=== PATIENT | female | born 1965 | race Caucasian/White ===

== ENCOUNTER 2025-03-03 22:56 | Inpatient (IN) | payer MEDICAID, SELFPAY ==
[2025-03-03 23:05] VITALS: BMI 28.1
[2025-03-03 23:06] VITALS: BP 121/75; PULSE 81; RESP 18; TEMP 38.4; O2SAT 100
[2025-03-03 23:12] VITALS: PULSE 61; RESP 20; O2SAT 95
--- NOTE | 2025-03-03 23:56 | XR_ITS ---
Examination: AP chest single view Technique one AP portable semiupright chest single view Date and time: March 04, 2025 0025 hours INDICATIONS: Shortness of breath chest pain today. FINDINGS: Significant pneumonia right base Normal heart size No pulmonary edema. Moderate osteopenia. IMPRESSION: Significant pneumonia right base
[2025-03-04] VITALS (62 sets, daily range): BP systolic 75–112; BP diastolic 48–69; PULSE 53–99; RESP 13–30; TEMP 35.5–39; O2SAT 88–98
--- NOTE | 2025-03-04 00:06 | PD.EDADULT ---
ED General RME/HPI General Chief complaint: Fever Stated complaint: FEVER Time Seen by Provider: 03/03/25 23:56 Arrival date/time: 03/03/25 22:56 RME / HPI RME / HPI narrative: 59-year-old female with past medical history of hypothyroidism comes into the ED with chief complaint of fever. Patient is a very poor historian and on evaluation was not able to provide much of the history. Patient stated that she has been feeling unwell for the past week since she was diagnosed with COVID. Patient was AO x 4, but was not providing accurate history about what symptoms brought her to the ED. On assessment patient was noted to have a temperature of 101 along with wheezing on auscultation. Denied chest pain,but did endorse abdominal pain and diarrhea. Otherwise no other complaints at this time. Admits smoking, denies any drugs or alcohol. Related Data Home Medications ?Medication ?Instructions ?Recorded ?Confirmed Levothyroxine * (SYNTHROID *) 250 mcg PO ACBR #0 tabs 06/11/14 escitalopram oxalate 10 mg tablet 10 mg PO QDAY #0 tabs 06/11/14 (Lexapro) naproxen 500 mg tablet (Naprosyn) 500 mg PO BIDWM #0 tabs 06/11/14 Allergies Allergy/AdvReac Type Severity Reaction Status Date / Time Penicillins Allergy Mild Hives Verified 03/03/25 23:16 Bee Stings Allergy Mild SWELL UP Uncoded 03/03/25 23:16 Review of Systems Review of Systems Systems Reviewed: All systems reviewed, normal except as documented Past Medical History Past Medical History Comments PMH COMMENT: PMH: Hypothyroidism Allergies: penicillin Social: Admits smoking, denies illicit drugs or drinking ED Exam Narrative Physical exam: Gen: A&O X 3, NAD HEENT: NCAT, EOMI, Pupils reactive MOISE, not icteric. External ears normal. No rhinorrhea. Moist mucous membranes. Neck: Supple, full range of motion, no observable masses, No meningeal sign. Lungs: No Respiratory distress,Wheezing MOISE. CV: RRR, no murmurs. Abdomen: Soft, nondistended, No rebound tenderness. MSK: No joint swelling, no redness, peripheral pulses presents, lumbar with no edema. Skin: No rashes, petechiae, lesions. Neuro: No focal neurological deficits appreciated, sensory and motor intact. Psych: flat affect Course Quality Measures none Orders Category Date Time Status Admit to Inpatient Status Routine Admission 03/04/25 03:23 Active Patient Condition Routine Admission 03/04/25 03:22 Ordered Gauger Chief Q4H START 00 Care 03/03/25 23:56 Active Continuous Pulse Oximetry NOW Care 03/03/25 23:56 Completed EKG (ED ONLY) *Do not use* NOW Care 03/03/25 23:56 Completed Schneider [Urinary Catheter] QS Care 03/04/25 03:30 Active Miscellaneous Nursing Order NOW Care 03/04/25 03:22 Active Notify provider NEEDED Care 03/04/25 03:22 Active Straight [In and Out Catheter] X1 Care 03/04/25 03:06 Active Strict Intake and Output Routine Care 03/04/25 03:30 Ordered Diet Regular Diet 03/04/25 Breakfast Active CXRP [XR chest 1V portable] Stat Exams 03/03/25 23:56 Taken EKG (ED Only) Stat Exams 03/03/25 23:56 Ordered US renal BI Routine Exams 03/04/25 03:29 Ordered ABG [Arterial Blood Gas] Stat Lab 03/04/25 02:57 Ordered Blood Culture (Lab) Stat Lab 03/04/25 00:50 Received CBC AM DRAW Lab 03/04/25 05:00 Ordered CBC AM DRAW Lab 03/05/25 05:00 Ordered CBC AM DRAW Lab 03/06/25 05:00 Ordered CBC [CBC] Stat Lab 03/03/25 00:25 Completed CMP [Comprehensive Metabolic Panel] Stat Lab 03/03/25 00:25 Completed Comprehensive Metabolic Panel AM DRAW Lab 03/04/25 05:00 Ordered Comprehensive Metabolic Panel AM DRAW Lab 03/05/25 05:00 Ordered Comprehensive Metabolic Panel AM DRAW Lab 03/06/25 05:00 Ordered Drug Screen,Urine Stat Lab 03/03/25 23:56 Ordered Lactic Acid [Lactate (Lactic Acid)] Stat Lab 03/03/25 00:25 Completed Lactic Acid [Lactate (Lactic Acid)] Stat Lab 03/04/25 02:56 Completed Lipid Panel AM DRAW Lab 03/04/25 05:00 Ordered Magnesium AM DRAW Lab 03/04/25 05:00 Ordered Magnesium AM DRAW Lab 03/05/25 05:00 Ordered Magnesium AM DRAW Lab 03/06/25 05:00 Ordered Magnesium Stat Lab 03/03/25 00:25 Completed Partial Thromboplastin Time AM DRAW Lab 03/05/25 05:00 Ordered Phosphorous AM DRAW Lab 03/05/25 05:00 Ordered Phosphorous AM DRAW Lab 03/06/25 05:00 Ordered Phosphorous AM DRAW Lab 03/07/25 05:00 Ordered Procalcitonin Stat Lab 03/03/25 00:25 Completed Prothrombin Time with INR AM DRAW Lab 03/05/25 05:00 Ordered Sputum Culture and Gram Stain Routine Lab 03/04/25 03:28 Ordered Troponin I Stat Lab 03/03/25 00:25 Completed Troponin I Stat Lab 03/04/25 02:56 Completed UA [Urinalysis] Stat Lab 03/03/25 23:56 Ordered 2 gm IV qday Med 03/04/25 03:34 Ordered cefTRIAXone [Rocephin] 2 gm SODIUM CHLORIDE 0.9% (Popper) [Ns 0.9% (P)] 50 ml IV QDAY 500 mg qday Med 03/06/25 09:00 Ordered Azithromycin Inj [Zithromax Inj] 500 mg Sodium Chloride 0.9% 250 ml [Ns] 250 ml IV QDAY Acetaminophen Tab [Tylenol Tab] Med 03/04/25 03:22 Active 650 mg PO Q6H PRN Acetaminophen Tab [Tylenol Tab] Med 03/04/25 00:16 Discontinued 650 mg PO X1 ONE Albuterol/Ipratr Rt Eli [Duoneb Rt Eli] Med 03/04/25 03:22 Active 3 ml INH Q2HR PRN Albuterol/Ipratr Rt Eli [Duoneb Rt Eli] Med 03/04/25 00:03 Discontinued 3 ml INH X1 ONE Albuterol/Ipratr Rt Eli [Duoneb Rt Eli] Med 03/04/25 03:25 Discontinued 3 ml INH X1 ONE Azithromycin Inj [Zithromax Inj] 500 mg Med 03/04/25 01:13 Active Sodium Chloride 0.9% 250 ml [Ns] 250 ml IV QDAY Clindamycin/Ns 600 mg Ivpb [Cleocin/Ns Ivpb] Med 03/04/25 02:08 Discontinued 600 mg in 50 ml IV X1 Docusate Sod [Colace] Med 03/04/25 03:22 Active 100 mg PO QDAY PRN Heparin Inj Med 03/04/25 09:00 Ordered 5,000 unit SC Q12HR Magnesium Sulfate 4 GM Ivpb [Magnesium Sulfate Ivpb] Med 03/04/25 01:36 Active 4 gm in 50 ml IV X1 MethylPREDNISolone.* [SoluMEDROL Inj] Med 03/04/25 00:03 Discontinued 125 mg IVP X1 ONE Ondansetron Inj [Zofran Inj] Med 03/04/25 03:22 Active 4 mg IVP Q6H PRN Ringers Lactated 1000 ml [Lactated Ringers] 1,000 ml Med 03/04/25 03:30 Active IV 75 mls/hr Senna [Senokot] Med 03/04/25 03:22 Active 1 tab PO QDAY PRN Sodium Chloride 0.9% 1000 ml [Ns] 1,000 ml Med 03/04/25 01:48 Discontinued IV 999 mls/hr Sodium Chloride 0.9% 1000 ml [Ns] 1,000 ml Med 03/04/25 02:51 Active IV 999 mls/hr Sodium Chloride Rt Eli 10% [NS Rt Eli 10%] Med 03/04/25 03:27 Discontinued 5 ml INH X1 ONE predniSONE Med 03/04/25 09:00 Ordered 40 mg PO QDAY Code Status Routine Oth 03/04/25 03:22 Ordered Oxygen Delivery NOW RT 03/04/25 00:05 Active Sputum Induction PRN RT 03/04/25 03:30 Ordered Vital Signs Vital signs: Vital Signs Temperature 101.1 F H 03/03/25 23:06 Pulse Rate 81 03/03/25 23:06 Respiratory Rate 18 03/03/25 23:06 Blood Pressure 121/75 03/03/25 23:06 Pulse Oximetry (%) 100 03/03/25 23:06 Oxygen Delivery Method Room Air 03/03/25 23:06 Discharge Plan Prescriptions/Referrals Prescriptions/Med Rec: No Action naproxen [Naprosyn] 500 MG tablet 500 mg PO BIDWM Qty: 0 Patient Comments: PRN PAIN escitalopram oxalate [Lexapro] 10 MG tablet 10 mg PO QDAY Qty: 0 Levothyroxine * (SYNTHROID *) 125 MCG tablet 250 mcg PO ACBR Qty: 0 Referrals: No Primary/Family,Physician [Primary Care Provider] - In 1 week Problem List Clinical Impression: Acute hypoxic respiratory failure, Acute exacerbation of chronic obstructive pulmonary disease Patient/Caregiver Discharge Instructions Print Language: Hebrew MDM Narrative MDM hospital course: Patient was seen and assessed by myself upon arrival. Diagnostic labs and imaging was ordered. DuoNebs, methylprednisolone 125 x 1 and acetaminophen 650 x 1 was ordered. 1:13: Patient's lab were reviewed and shows some WBC elevation at 12.2, lactic acid was not elevated, Pro-Hao was elevated at 9.90, patient does have a creatinine of 2.6, and magnesium was low at 1.4. Ordered magnesium 4 g. EKG did not show any ST changes, but troponins were slightly elevated to 0.053. Chest x-ray evaluated and does show some consolidation on the right lower lung therefore gave azithromycin IV x 1 and will also add clindamycin. 2:07: Patient reevaluated. Patient still AO x 3 and in no acute distress. Patient's blood pressure did drop to the 80s over 60s, but MAP was still above 65. At this time gave 1 L of IV fluids. Patient's fever subsided. Patient still requiring around 5 L of O2. 2:33: Spoke with IM team for admission. Will assess the patient for admission. 3:08: Patient reevaluated. BP in the 90s over 60s after 1L IV fluids. Ordered additional 1L and repeat lactic acid and troponin. Case disclosed with Attending Dr. Raj Miranda PGY2 Disclaimer: Even though this this note was dictated by speech recognition and even though it was carefully revised there may still be minor errors in manager subway due to voice recognition software. Medication Administration(s) Medication Administration History Acetaminophen (Acetaminophen 325 Mg Tablet) 650 mg PO Q6H PRN PRN Reason: Fever >100.4 or pain Stop: 04/03/25 03:21 Albuterol/Ipratropium (Albuterol/Ipratropium (Duoneb) Rt Eli 3 Ml Nebu) 3 ml INH Q2HR PRN PRN Reason: SHORTNESS OF BREATH OR WHEEZE Stop: 04/03/25 03:21 Docusate Sodium (Docusate Sod 100 Mg Capsule) 100 mg PO QDAY PRN; Protocol PRN Reason: CONSTIPATION Stop: 04/03/25 03:21 Heparin Sodium (Porcine) (Heparin Sod Inj 5000 Unit/Ml Vial) 5,000 unit SC Q12HR AID Stop: 03/18/25 08:59 Azithromycin 500 mg/ Sodium (Chloride) 250 mls @ 250 mls/hr IV QDAY [facility] Stop: 03/11/25 01:12 Last Infusion: 03/04/25 02:40 Dose: Infused Documented By: Admin: 03/04/25 01:40 Dose: 250 mls/hr Documented By: CG Magnesium Sulfate (Magnesium Sulfate Ivpb) 4 gm in 50 mls @ 12.5 mls/hr IV X1 ONE Stop: 03/04/25 05:35 Last Admin: 03/04/25 02:20 Dose: 12.5 mls/hr Documented By: CG Sodium Chloride (Ns) 1,000 mls @ 999 mls/hr IV .Q1H1M ONE Stop: 03/04/25 03:51 Last Admin: 03/04/25 03:02 Dose: 999 mls/hr Documented By: PAULIE Lactated Ringer's (Lactated Ringers) 1,000 mls @ 75 mls/hr IV .[id number] [facility] Stop: 03/04/25 16:49 Ondansetron HCl (Ondansetron Inj 2 Mg/Ml Inj 2 Ml) 4 mg IVP Q6H PRN; Protocol PRN Reason: NAUSEA OR VOMITING Stop: 04/03/25 03:21 Sennosides (Senna Tablet) 1 tab PO QDAY PRN; Protocol PRN Reason: constipation Stop: 04/03/25 03:21 Discontinued Medications Acetaminophen (Acetaminophen 325 Mg Tablet) 650 mg PO X1 ONE Stop: 03/04/25 00:17 Last Admin: 03/04/25 00:38 Dose: 650 mg Documented By: PAULIE Albuterol/Ipratropium (Albuterol/Ipratropium (Duoneb) Rt Eli 3 Ml Nebu) 3 ml INH X1 ONE Stop: 03/04/25 00:04 Last Admin: 03/04/25 00:20 Dose: 3 ml Documented By: GUI Albuterol/Ipratropium (Albuterol/Ipratropium (Duoneb) Rt Eli 3 Ml Nebu) 3 ml INH X1 ONE Stop: 03/04/25 03:26 Sodium Chloride (Ns) 1,000 mls @ 999 mls/hr IV .Q1H1M ONE Stop: 03/04/25 02:48 Last Admin: 03/04/25 03:01 Dose: 999 mls/hr Documented By: Infusion: 03/04/25 02:54 Dose: Infused Documented By: Admin: 03/04/25 01:53 Dose: 999 mls/hr Documented By: PAULIE Clindamycin/Sodium Chloride (Cleocin/Ns Ivpb) 600 mg in 50 mls @ 100 mls/hr IV X1 ONE Stop: 03/04/25 02:37 Last Admin: 03/04/25 03:00 Dose: 100 mls/hr Documented By: PAULIE Methylprednisolone Sodium Succinate (Methylprednisolone Sod Succ 62.5 Mg/Ml 2ml Vial) 125 mg IVP X1 ONE Stop: 03/04/25 00:04 Last Admin: 03/04/25 00:33 Dose: 125 mg Documented By: PAULIE Sodium Chloride (Sodium Chloride Rt 10% 15 Ml Nebu) 5 ml INH X1 ONE Stop: 03/04/25 03:28
[2025-03-04] MEDS: ALBUTEROL/IPRATROPIUM (Duoneb) RT SOL 3 ML NEBU INH ×2 (00:20→04:12)
[2025-03-04] MEDS: MethylPREDNISolone SOD SUCC 62.5 MG/ML 2ML VIAL 125 MG IVP (00:33)
[2025-03-04 00:34] LABS: Lactate (Lactic Acid) 1.4 mMol/L (0.4-2.0)
[2025-03-04 00:38] LABS: Basophils # (Auto) 0.1 Thou/mm3 (0.0-0.2); Basophils % (Auto) 0 % (0-2.5); Eosinophils # (Auto) 0.0 Thou/mm3 (0.0-0.5); Eosinophils % (Auto) 0 % (0-10); Hematocrit 36.8 % (36.0-46.0); Hemoglobin 13.1 g/dL (12.0-16.0); Immature Granulocytes Auto 0.10 Thou/mm3 (0.00-0.00); Lymphocytes # (Auto) 0.9 Thou/mm3 (1.0-4.8); Lymphocytes % (Auto) 7 % (10-50); Mean Corpuscular HGB Conc 35.6 g/dl (31.0-37.0); Mean Corpuscular Hemoglobin 30.5 pg (25.0-35.0); Mean Corpuscular Volume 86 fL (80-100); Monocytes # (Auto) 0.8 Thou/mm3 (0.0-0.8); Monocytes % (Auto) 6 % (0-12); Neutrophils # (Auto) 10.4 Thou/mm3 (1.8-7.7); Neutrophils % (Auto) 86 % (37-80); Nucleated Red Blood Cell # 0.00 Thou/mm3 (0.00-0.00); Nucleated Red Blood Cell % 0 /100 WBC (0); Platelet Count 141 Thou/mm3 (140-440); RDW Standard Deviation 45.9 fL (36.4-46.3); Red Blood Count 4.29 Miln/mm3 (4.00-5.20); White Blood Count 12.2 Thou/mm3 (3.6-11.0)
[2025-03-04] MEDS: ACETAMINOPHEN 325 MG TABLET 650 MG PO (00:38)
[2025-03-04 01:11] LABS: Alanine Aminotransferase 149 U/L (10-49); Albumin, Serum 4.1 gm/dL (3.4-4.8); Albumin/Globulin Ratio 1.6 (1.2-2.2); Alkaline Phosphatase 99 U/L (46-116); Anion Gap 13 (7-16); Aspartate Amino Transferase 458 U/L (0-34); BUN/Creatinine Ratio 18 Ratio (12-20); Bilirubin,Total 0.9 mg/dL (0.3-1.2); Blood Urea Nitrogen 46 mg/dL (9-23); Calcium 8.5 mg/dL (8.3-10.6); Calcium (Corrected) 8.5 mg/dL (8.5-10.1); Carbon Dioxide 21.6 mMol/L (20.0-31.0); Chloride 95 mMol/L (98-107); Creatinine (Component) 2.6 mg/dL (0.6-1.3); Estimated Creatinine Clearance 25.3 mL/min (>60); Globulin 2.5 gm/dL (2.3-3.5); Glucose 124 mg/dL (74-106); Magnesium 1.4 mg/dL (1.6-2.6); Osmolality,Calculated 273 (275-295); Potassium 4.0 mMol/L (3.4-5.1); Procalcitonin 9.90 ng/ml (0.0-0.49); Sodium 130 mMol/L (136-145); Total Protein 6.6 gm/dL (5.7-8.2); eGFR 20 See Note
[2025-03-04 01:13] LABS: Troponin I 0.053 ng/mL (0.0-0.045)
[2025-03-04] MEDS: AZITHROMYCIN INJ 500 MG in SODIUM CHLORIDE 0.9% 250 ML 250 ML 250 MG IV ×2 (01:40→20:29)
[2025-03-04] MEDS: SODIUM CHLORIDE 0.9% 1000 ML 1,000 ML 999 ML IV ×3 (01:53→03:02)
[2025-03-04] MEDS: Magnesium Sulfate 4 GM Ivpb 4 GM/50 ML BAG IV (02:20)
[2025-03-04] MEDS: CLINDAMYCIN/NS 600 MG IVPB 600 MG/50 ML BAG 100 MG IV (03:00)
[2025-03-04 03:04] LABS: Lactate (Lactic Acid) 1.1 mMol/L (0.4-2.0)
[2025-03-04 03:24] LABS: Troponin I 0.053 ng/mL (0.0-0.045)
--- NOTE | 2025-03-04 03:29 | XR_ITS ---
Examination: Retroperitoneal ultrasound, complete Technique: Multiple high resolution grayscale images of the retroperitoneum obtained, including kidneys and bladder. Exam date and time:March 04, 2025, 0714 hours INDICATIONS: Difficulty urinating today, no urine output today FINDINGS: Right kidney 10.9 cm-renal cortex 2.1 cm Mid pole 6 mm calculus Left kidney 10.6 cm renal cortex 2.1 cm Mild left renal parenchymal scar formation No hydronephrosis Contracted urinary bladder IMPRESSION: Mild bilateral renal parenchymal scar formation 6 mm mid pole right renal calculus No hydronephrosis
--- NOTE | 2025-03-04 03:38 | ESHP_ITS ---
Documentation for date of: 03/04/25 HPI History of Present Illness Chief complaint: SOB, general malaise History of present illness: 59 y/o F with PMHx significant for hypothyroidism, probable COPD presented to ED from home with chief complaint shortness of breath and general malaise lasting several days. Patient is a very poor historian despite remaining oriented. Reports has been feeling unwell and short of breath for some time, endorses episode of vomiting 3 days ago, reports fevers but unable to give timeframe. Patient noted be severely hypoxic in ED, treated with Percepta COPD exacerbation secondary pneumonia given patient's [id number] history and significant wheezing on exam. Chest x-ray showing right lower lobe consolidations consistent with pneumonia. Patient denies chest pain, abdominal pain. ED COURSE: Labs significant for: WBC 12.2, sodium 130, BUN 46, creatinine 2.6, EGFR 20, lactic acid 1.4, Trope 0.053, Pro-Hao 9.9, AST 458, ALT 149, ALP 99. Imaging significant for: Chest x-ray showing right lower lobe consolidation consistent with pneumonia. Patient received 2 L bolus normal saline, methylprednisolone, DuoNebs, azithromycin in the ED. PMH: Hypothyroidism. Probable COPD, unconfirmed. PSH: Left shoulder rotator cuff repair. SH: Patient reports [id number] smoking history. Reports occasional alcohol use, unable to specify further. Denies illicit drug use. Allergies:?Penicillin Medications: Levothyroxine, Lexapro Review of Systems Review of Systems Systems Reviewed: All systems reviewed, normal except as documented Past Medical History Past Medical History Comments PMH COMMENT: PMH: Hypothyroidism. Probable COPD, unconfirmed. PSH: Left shoulder rotator cuff repair. SH: Patient reports [id number] smoking history. Reports occasional alcohol use, unable to specify further. Denies illicit drug use. Allergies:?Penicillin Medications: Levothyroxine, Lexapro Exam Vital Signs Temp Pulse Resp BP Pulse Ox O2 Del Method O2 Flow Rate 98.7 F 79 27 H 88/54 L 94 L Nasal Cannula 6 03/04/25 01:44 03/04/25 02:00 03/04/25 02:00 03/04/25 02:00 03/04/25 02:00 03/04/25 01:46 03/04/25 01:46 Narrative Exam PE: Gen: Well-developed and well-nourished. Very drowsy, distractible. HEENT: NCAT, PERRLA, EOMI, anicteric conjunctivae. Dry mucous membranes. CVS: normal S1 and S2. RRR. No M/R/G. Resp: Significant diffuse high-pitched wheezing in all lung butcher. Abd: soft, non-tender, non-distended. MSK: Good ROM in BUE & BLE. No edema or rash. Neuro: CN II-XII grossly intact. Strength 5/5 in BUE & BLE. Alert and oriented x3. Drowsy, slow to respond to questioning, but follows commands and answers appropriately. Results: Labs 03/04/25 04:16 03/04/25 04:16 Labs: Short CBC 03/03/25 Range/Units 00:25 WBC 12.2 H (3.6-11.0) Thou/mm3 Hgb 13.1 (12.0-16.0) g/dL Hct 36.8 (36.0-46.0) % Plt Count 141 (140-440) Thou/mm3 BMP 03/03/25 00:25 Sodium 130 L Potassium 4.0 Chloride 95 L Carbon Dioxide 21.6 BUN 46 H Creatinine 2.6 H Glucose 124 H Calcium 8.5 Cardiac Enzymes 03/03/25 03/04/25 Range/Units 00:25 02:56 Troponin I 0.053 H* 0.053 H* (0.0-0.045) ng/mL Liver Function 03/03/25 Range/Units 00:25 Total Bilirubin 0.9 (0.3-1.2) mg/dL AST 458 H (0-34) U/L ALT 149 H (10-49) U/L Alkaline Phosphatase 99 (46-116) U/L Albumin 4.1 (3.4-4.8) gm/dL Quality Measures Quality Measures VTE prophylaxis Medications Home Medications and Allergies Home Medications ?Medication ?Instructions ?Recorded ?Confirmed ?Type Levothyroxine * (SYNTHROID *) 250 mcg PO ACBR #0 tabs 06/11/14 History escitalopram oxalate 10 mg tablet 10 mg PO QDAY #0 tab s 06/11/14 History (Lexapro) naproxen 500 mg tablet (Naprosyn) 500 mg PO BIDWM #0 t abs 06/11/14 History Allergies Allergy/AdvReac Type Severity Reaction Status Date / Time Penicillins Allergy Mild Hives Verified 03/03/25 23:16 Bee Stings Allergy Mild SWELL UP Uncoded 03/03/25 23:16 Visit Medications Acetaminophen (Acetaminophen 325 Mg Tablet) 650 mg PO Q6H PRN PRN Reason: Fever >100.4 or pain Stop: 04/03/25 03:21 Albuterol/Ipratropium (Albuterol/Ipratropium (Duoneb) Rt Eli 3 Ml Nebu) 3 ml INH Q2HR PRN PRN Reason: SHORTNESS OF BREATH OR WHEEZE Stop: 04/03/25 03:21 Docusate Sodium (Docusate Sod 100 Mg Capsule) 100 mg PO QDAY PRN; Protocol PRN Reason: CONSTIPATION Stop: 04/03/25 03:21 Heparin Sodium (Porcine) (Heparin Sod Inj 5000 Unit/Ml Vial) 5,000 unit SC Q12HR ADI Stop: 03/18/25 08:59 Azithromycin 500 mg/ Sodium (Chloride) 250 mls @ 250 mls/hr IV QDAY ADI Stop: 03/11/25 01:12 Last Infusion: 03/04/25 02:40 Dose: Infused Magnesium Sulfate (Magnesium Sulfate Ivpb) 4 gm in 50 mls @ 12.5 mls/hr IV X1 ONE Stop: 03/04/25 05:35 Last Admin: 03/04/25 02:20 Dose: 12.5 mls/hr Sodium Chloride (Ns) 1,000 mls @ 999 mls/hr IV .Q1H1M ONE Stop: 03/04/25 03:51 Last Admin: 03/04/25 03:02 Dose: 999 mls/hr Lactated Ringer's (Lactated Ringers) 1,000 mls @ 75 mls/hr IV .[id number] ADI Stop: 03/04/25 16:49 Ceftriaxone Sodium 2 gm/ (Sodium Chloride) 50 mls @ 100 mls/hr IV QDAY ADI Stop: 03/11/25 03:33 Azithromycin 500 mg/ Sodium (Chloride) 250 mls @ 250 mls/hr IV QDAY [facility] Stop: 03/13/25 08:59 Ondansetron HCl (Ondansetron Inj 2 Mg/Ml Inj 2 Ml) 4 mg IVP Q6H PRN; Protocol PRN Reason: NAUSEA OR VOMITING Stop: 04/03/25 03:21 Prednisone (Prednisone 20 Mg Tablet) 40 mg PO QDAY ADI Stop: 03/11/25 03:36 Sennosides (Senna Tablet) 1 tab PO QDAY PRN; Protocol PRN Reason: constipation Stop: 04/03/25 03:21 Discontinued Medications Acetaminophen (Acetaminophen 325 Mg Tablet) 650 mg PO X1 ONE Stop: 03/04/25 00:17 Last Admin: 03/04/25 00:38 Dose: 650 mg Albuterol/Ipratropium (Albuterol/Ipratropium (Duoneb) Rt Eli 3 Ml Nebu) 3 ml INH X1 ONE Stop: 03/04/25 00:04 Last Admin: 03/04/25 00:20 Dose: 3 ml Albuterol/Ipratropium (Albuterol/Ipratropium (Duoneb) Rt Eli 3 Ml Nebu) 3 ml INH X1 ONE Stop: 03/04/25 03:26 Sodium Chloride (Ns) 1,000 mls @ 999 mls/hr IV .Q1H1M ONE Stop: 03/04/25 02:48 Last Admin: 03/04/25 03:01 Dose: 999 mls/hr Clindamycin/Sodium Chloride (Cleocin/Ns Ivpb) 600 mg in 50 mls @ 100 mls/hr IV X1 ONE Stop: 03/04/25 02:37 Last Admin: 03/04/25 03:00 Dose: 100 mls/hr Methylprednisolone Sodium Succinate (Methylprednisolone Sod Succ 62.5 Mg/Ml 2ml Vial) 125 mg IVP X1 ONE Stop: 03/04/25 00:04 Last Admin: 03/04/25 00:33 Dose: 125 mg Sodium Chloride (Sodium Chloride Rt 10% 15 Ml Nebu) 5 ml INH X1 ONE Stop: 03/04/25 03:28 Assessment & Plan Plan 59 y/o F with PMHx significant for hypothyroidism, probable COPD presented to ED from home with chief complaint shortness of breath and general malaise lasting several days, admitted for sepsis secondary community-acquired pneumonia with probable COPD exacerbation. #Acute hypoxic respiratory failure #Acute encephalopathy #Sepsis secondary to CAP #Probable COPD exacerbation Patient presented with complaint shortness of breath generalized malaise. Patient requiring 6 L O2 to maintain O2 saturations at 90%, does not use O2 at home. Patient does not report any known history of COPD, however has 25-[id number]-[id number] smoking history, diffuse high-pitched expiratory wheezing, suspect COPD exacerbation. Patient septic with Tmax 102.2, BP decreased in 88/54, leukocytosis 12.2. Patient has KENNETH BUN 46, creatinine 2.6, EGFR 20, no known history of kidney disease. Pro-Hao 9.9. Patient also has acute liver injury AST 458, ALT 149, ALP normal. Patient received 2 L bolus normal saline, steroids, DuoNeb treatment, azithromycin and clindamycin in the ED. - ABG pending, follow-up - Azithromycin 500 mg IV daily (started 03/04) - Ceftriaxone 2 g IV daily (started 03/04) - IVF: LR at 75 mL/h x 1 L - Prednisone 40 mg p.o. daily x 5 days - O2 as needed to maintain saturations 88-92% - DuoNebs every 2 hours as needed for SOB/wheezing #KENNETH, prerenal #Acute liver injury Patient has transaminitis, no known history of liver disease. Patient also has KENNETH in the setting of sepsis. Patient received straight cath in ED, no urine out, patient does not recall last time she urinated. - Strict I's and O's - Schneider cath - Acute hepatitis panel, liver US pending, follow-up - Monitor daily labs - Avoid nephrotoxins, hepatotoxins - IVF as above. #Hypothyroidism Patient has history of hypothyroidism, takes levothyroxine. Patient does not recall dosage. Med rec pending. - Resume home levothyroxine once dosage determined. DVT prophylaxis: Heparin GI prophylaxis: None Diet: Regular Lines: Peripheral IV, Schneider cath Code status: DNR Plan of care discussed with attending Dr. Natacha Yates MD PGY?2 Attending Provider Attestation/Addendum I attest that I was physically present for the evaluation, physical examination, lab and imaging review of the patient with the residents. I discussed the case with the residents and agree with the findings and plans of care as documented above. After examination of the patient and review of the clinical data I feel that this patient needs admission to the hospital for further treatment/evaluation Cam Manzano MD
--- NOTE | 2025-03-04 03:48 | XR_ITS ---
Examination: Abdomen sonogram, Limited Date and time of exam: March 04, 2025, 0708 hours INDICATIONS: Diagnosis acute liver injury, elevated liver function tests on laboratory examination today Technique: Real-time calabrese scale transabdominal sonographic images of the upper abdomen obtained. Findings: Normal gallbladder. Normal common bile duct 0.4 cm Pancreatic head 2.3 cm Liver normal size 15.2 cm fatty infiltration no focal liver lesions Normal hepatopedal portal venous flow Patent IVC IMPRESSION: Normal gallbladder Liver normal size, fatty infiltration no focal liver lesions
[2025-03-04 04:12] LABS: Base Excess -6 (-3-3); HCO3 20 mEq/L (20-26); Inspired Oxygen, FIO2 21 %; O2 Saturation 96 % (91-98); PCO2 36 mmHg (32.0-48.0); PO2 79 mmHg (83-108); pH, Arterial 7.34 (7.35-7.45)
[2025-03-04 04:13] LABS: Allen Test Performed/OK; Inspired O2, VO2 Liters 6 L/min; Puncture Site Right Radial
[2025-03-04 04:30] LABS: Collection Type, Urine Voided
--- NOTE | 2025-03-04 04:32 | PC.RT ---
sputum with GS collected
[2025-03-04 04:42] LABS: Amorphous Crystals,Urine Present (Absent); Bacteria,Urine 4+; Bilirubin,Urine Negative (Negative); Blood,Urine 3+ (Negative); Color,Urine Yellow (Lt Yel-Yel); Glucose, Urine Negative (Negative); Granular Casts,Urine 1 /hpf (0-1); Hyaline Casts,Urine 10 /hpf (0-1); Ketones,Urine Negative (Negative); Leukocyte Esterase,Urine Positive (Negative); Nitrite,Urine Negative (Negative); PH,Urine 5.5 (5.0-7.0); Protein,Urine 1+ (Neg - Trace); RBC,Urine 11 /hpf (0-3); Red Blood Cell Casts,Urine < 1 /hpf (0-1); Specific Gravity,Urine 1.018 (1.001-1.035); Squamous Epithelial Cell,Urine 25 /hpf (0-5); Urobilinogen,Urine 2.0 mg/dL (0.0-1.0); WBC,Urine 99 /hpf (0-5)
[2025-03-04 04:43] LABS: Clarity,Urine Turbid (Clear/Hazy)
[2025-03-04 04:47] LABS: Amphetamine/Methamp Scrn,U Negative (Negative); Barbiturate Screen,Urine Negative (Negative); Benzodiazepines Screen,Urine Negative (Negative); Benzoylecgonine Screen, Ur Negative (Negative); Fentanyl Screen,Urine Negative (Negative); Opiate Screen,Urine Negative (Negative); THC Screen,Urine Negative (Negative)
[2025-03-04 05:02] LABS: Basophils # (Auto) 0.0 Thou/mm3 (0.0-0.2); Basophils % (Auto) 0 % (0-2.5); Eosinophils # (Auto) 0.0 Thou/mm3 (0.0-0.5); Eosinophils % (Auto) 0 % (0-10); Hematocrit 31.4 % (36.0-46.0); Hemoglobin 11.0 g/dL (12.0-16.0); Immature Granulocytes Auto 0.11 Thou/mm3 (0.00-0.00); Lymphocytes # (Auto) 0.7 Thou/mm3 (1.0-4.8); Lymphocytes % (Auto) 7 % (10-50); Mean Corpuscular HGB Conc 35.0 g/dl (31.0-37.0); Mean Corpuscular Hemoglobin 30.9 pg (25.0-35.0); Mean Corpuscular Volume 88 fL (80-100); Monocytes # (Auto) 0.5 Thou/mm3 (0.0-0.8); Monocytes % (Auto) 5 % (0-12); Neutrophils # (Auto) 8.7 Thou/mm3 (1.8-7.7); Neutrophils % (Auto) 87 % (37-80); Nucleated Red Blood Cell # 0.00 Thou/mm3 (0.00-0.00); Nucleated Red Blood Cell % 0 /100 WBC (0); Platelet Count 122 Thou/mm3 (140-440); RDW Standard Deviation 48.3 fL (36.4-46.3); Red Blood Count 3.56 Miln/mm3 (4.00-5.20); White Blood Count 10.1 Thou/mm3 (3.6-11.0)
[2025-03-04 05:34] LABS: Alanine Aminotransferase 125 U/L (10-49); Albumin, Serum 3.5 gm/dL (3.4-4.8); Albumin/Globulin Ratio 1.7 (1.2-2.2); Alkaline Phosphatase 84 U/L (46-116); Anion Gap 13 (7-16); Aspartate Amino Transferase 362 U/L (0-34); BUN/Creatinine Ratio 16 Ratio (12-20); Bilirubin,Total 0.9 mg/dL (0.3-1.2); Blood Urea Nitrogen 41 mg/dL (9-23); Calcium 7.5 mg/dL (8.3-10.6); Calcium (Corrected) 7.9 mg/dL (8.5-10.1); Carbon Dioxide 19.5 mMol/L (20.0-31.0); Cardiac Risk Estimate 12.6 RATIO (3.7-5.6); Chloride 100 mMol/L (98-107); Cholesterol 151 mg/dL (132-200); Creatinine (Component) 2.5 mg/dL (0.6-1.3); Estimated Creatinine Clearance 26.3 mL/min (>60); Globulin 2.1 gm/dL (2.3-3.5); Glucose 148 mg/dL (74-106); HDL Cholesterol 12 mg/dL (40-60); LDL Cholesterol,Calculated 92 mg/dL (0-130); Magnesium 2.3 mg/dL (1.6-2.6); Osmolality,Calculated 277 (275-295); Potassium 4.2 mMol/L (3.4-5.1); Sodium 132 mMol/L (136-145); Total Protein 5.6 gm/dL (5.7-8.2); Triglycerides 236 mg/dL (30-150); eGFR 21 See Note
[2025-03-04] MEDS: RINGERS LACTATED 1000 ML 1,000 ML 75 ML IV (06:26)
--- NOTE | 2025-03-04 07:25 | PC.NURSE ---
Jh spoke with Mr. Richmond (son) of patient at this time, senior grant writer explained that his aunt was listed at next of kin and that the senior grant writer would update Mrs Vernon (sister) who is listed in chart and that information should be given by Mrs Vernon. Relationship Manager attempted to called Mrs Vernon, but no answer x 2, call went to voice mail. Pt is sleeping at this time with no s/s of pain or acute distress, even rise and fall of chest noted. bed in low position and locked, weir noted to be below waist, no kinks or obstruction and secured and off floor.
--- NOTE | 2025-03-04 09:37 | EKG_ITS ---
[facility] Test Date: 2025-03-04 Pat Name: JUAN CARLOS LYNNE Department: Room: [facility] Gender: Female Balance Clerk: : 1965 Requested By: Yin Hanna Order Number: [id number] Reading MD: Yin Hanna Measurements Intervals [place] Rate: 96 P: -8 SD: 148 QRS: 22 QRSD: 90 T: 30 QT: 322 QTc: 408 Interpretive Statements SINUS RHYTHM WITH OCCASIONAL VENTRICULAR PREMATURE COMPLEXES No previous ECG available for comparison /store/S0/[id number]
[2025-03-04] MEDS: cefTRIAXone 2 GM in SODIUM CHLORIDE 0.9% (Popper) 50 ML IV (09:52)
--- NOTE | 2025-03-04 10:10 | XR_ITS ---
Examination: CT brain head without contrast. 2-D sagittal coronal reconstructions Date and time of exam:March 04, 2025, 1204 hours INDICATIONS: Ground-level fall today with injury to head, head pain CTDI: vol (mGy):51 DLP: (mGycm):1010 Technique: Multiple CT axial sections of the brain have been obtained, 5 mm slice thickness. Contrast has not been administered. 2-D sagittal, coronal reconstructions have been obtained Low dose protocols were performed. One or more of the following dose reduction techniques were used; automated exposure control, adjustment of the mA and/or KV according to patient size, use of iterative reconstruction technique. Findings: No significant ventricular enlargement. Intra-axial or extra-axial hemorrhage density is not seen. No mass effect or midline shift Basal cisterns are not remarkable. Fourth ventricle is midline. Cranial vault intact. Impression: Negative for acute hemorrhage, mass effect or midline shift
[2025-03-04 12:35] LABS: Alcohol, Urine Negative (Negative)
[2025-03-04 13:03] LABS: Free T4 (Free Thyroxine) 0.56 ng/dL (0.89-1.76); Thyroid Stimulating Hormone 19.25 uIU/mL (0.55-4.78); Troponin I 0.029 ng/mL (0.0-0.045)
--- NOTE | 2025-03-04 16:20 | ESPR_ITS ---
<Statement entered by Jamel Coe MD - 03/07/25 14:39> I reviewed above note and agree with findings and plans. I have also personally examined the patient with medicine team and went over assessment and plan with medical team including product development intern and resident physician. <Statement entered by Yin Hanna MD - 03/04/25 22:04> Pt is seen at bedside. Pt is A&O x3. Pt's daughter in law is at bedside and son on the phone who states Pt is not herself and appears to be confused. Pt does have history of heavy alcohol use however denies recent drinking. Pt states she had at fall couple days ago causing her bruising that is visible on the left eye. CT of head was negative for hemorrhage or mass affect. Pt also remembers episodes of hematemesis and melena, GI is consulted. Pt is placed NPO will anticipate EGD tomorrow. Hgb is stable. Pt is currently being treated for sepsis secondary to PNA vs. UTI with end organ damage of KENNETH. Pt is given fluids and started on IV antibiotics. Covid and influenza are negative. Patient was seen and examined by me personally. I have directly supervised and reviewed documentation by the team resident and agree with its findings. ------- Plan of care was discussed with the attending, Dr. Carolin Hanna, PGY-2 Documentation for date of: 03/04/25 Subjective Subjective Interval history: Patient was admitted this morning. Was seen and examined at bedside in ED. Drowsy and AOx3, and is unable to explain why she is here in the hospital. Per daughter at bedside she was not feeling well and felt short of breath, prompting ED visit. Patient also reports black diarrhea and nausea for the past week. She now remembers one episode of coffee ground emesis last night. Continue supplemental oxygen, azithromycin and ceftriaxone, prednisone 40 mg p.o. daily, DuoNebs as needed for acute hypoxic respiratory failure COPD exacerbation and CAP. Ceftriaxone is covering UTI. UCx was not able to be obtained as reflux was not ordered. Dr. Giang consulted for GIB, started IV pantoprazole 40 mg twice daily, octreotide drip, heparin held and started SCDs. N.p.o. after midnight. Exam Vital Signs Temp Pulse Resp BP Pulse Ox O2 Del Method O2 Flow Rate 96.6 F L 61 19 105/69 96 Nasal Cannula 3 08/10/25 16:00 03/04/25 16:00 03/04/25 16:00 03/04/25 16:00 03/04/25 16:00 03/04/25 16:00 03/04/25 13:54 Narrative Exam GENERAL: AOx3, no acute distress, drowsy HEENT: NC/AT, mucous membranes dry, bilateral sclera anicteric CARDIOVASCULAR: regular rate and rhythm, S1/S2 present, no murmurs appreciated PULMONARY: mildly diminished breath sounds b/l, diffuse b/l inspiratory and expiratory wheezing ABDOMINAL: soft, non-tender, non-distended, no rebound/guarding, bowel sounds present EXTREMITIES: no peripheral edema SKIN: warm and dry, intact, no rashes NEURO: CN II-XII grossly intact, following commands Objective Labs 03/04/25 04:16 03/04/25 04:16 Labs: Laboratory Results - last 24 hr 03/03/25 03/04/25 03/04/25 00:25 02:56 04:07 WBC 12.2 H RBC 4.29 Hgb 13.1 Hct 36.8 MCV 86 MCH 30.5 MCHC 35.6 RDW Std Deviation 45.9 Plt Count 141 Neut % (Auto) 86 H Lymph % (Auto) 7 L [place] % (Auto) 6 Eos % (Auto) 0 Baso % (Auto) 0 Neut # (Auto) 10.4 H Lymph # (Auto) 0.9 L [place] # (Auto) 0.8 Eos # (Auto) 0.0 Baso # (Auto) 0.1 Immature Gran # (Auto) 0.10 H Absolute Nucleated RBC 0.00 Immature Gran % 1 H Nucleated RBC % 0 Puncture Site Right Radial ABG pH 7.34 L ABG pCO2 36 ABG pO2 79 L ABG HCO3 20 ABG O2 Saturation 96 ABG Base Excess -6 L Oxygen Liter Flow 6 FiO2 21 Sodium 130 L Potassium 4.0 Chloride 95 L Carbon Dioxide 21.6 Anion Gap 13 BUN 46 H Creatinine 2.6 H Estim Creat Clear Calc 25.3 L eGFR 20 L BUN/Creatinine Ratio 18 Glucose 124 H Calculated Osmolality 273 L Lactic Acid 1.4 1.1 Calcium 8.5 Corrected Calcium 8.5 Magnesium 1.4 L Total Bilirubin 0.9 AST 458 H ALT 149 H Alkaline Phosphatase 99 Troponin I 0.053 H* 0.053 H* Total Protein 6.6 Albumin 4.1 Globulin 2.5 Albumin/Globulin Ratio 1.6 Triglycerides Cholesterol LDL Cholesterol, Calc HDL Cholesterol Cholesterol/HDL Ratio Procalcitonin 9.90 H TSH Free T4 Ur Collection Type Urine Color Urine Clarity Urine pH Ur Specific [place] Urine Protein Urine Glucose (UA) Urine Ketones Urine Blood Urine Nitrite Urine Bilirubin Urine Urobilinogen (Auto) Ur Leukocyte Esterase Urine RBC Urine WBC Ur Squamous Epith Cells Amorphous Crystals Urine Bacteria Hyaline Casts Granular Casts RBC Casts Urine Opiates Screen Urine Fentanyl Screen Ur Barbiturates Screen U Amphetamin/Meth Scrn U Benzodiazepines Scrn U Cocaine Metab Screen U Marijuana (THC) Screen Urine Alcohol 03/04/25 03/04/25 03/04/25 04:10 04:16 11:30 WBC 10.1 RBC 3.56 L Hgb 11.0 L D Hct 31.4 L MCV 88 MCH 30.9 MCHC 35.0 RDW Std Deviation 48.3 H Plt Count 122 L Neut % (Auto) 87 H Lymph % (Auto) 7 L [place] % (Auto) 5 Eos % (Auto) 0 Baso % (Auto) 0 Neut # (Auto) 8.7 H Lymph # (Auto) 0.7 L [place] # (Auto) 0.5 Eos # (Auto) 0.0 Baso # (Auto) 0.0 Immature Gran # (Auto) 0.11 H Absolute Nucleated RBC 0.00 Immature Gran % 1 H Nucleated RBC % 0 Puncture Site ABG pH ABG pCO2 ABG pO2 ABG HCO3 ABG O2 Saturation ABG Base Excess Oxygen Liter Flow FiO2 Sodium 132 L Potassium 4.2 Chloride 100 Carbon Dioxide 19.5 L Anion Gap 13 BUN 41 H Creatinine 2.5 H Estim Creat Clear Calc 26.3 L eGFR 21 L BUN/Creatinine Ratio 16 Glucose 148 H Calculated Osmolality 277 Lactic Acid Calcium 7.5 L Corrected Calcium 7.9 L Magnesium 2.3 Total Bilirubin 0.9 AST 362 H ALT 125 H Alkaline Phosphatase 84 Troponin I 0.029 Total Protein 5.6 L Albumin 3.5 D Globulin 2.1 L Albumin/Globulin Ratio 1.7 Triglycerides 236 H Cholesterol 151 LDL Cholesterol, Calc 92 HDL Cholesterol 12 L Cholesterol/HDL Ratio 12.6 H Procalcitonin TSH 19.25 H Free T4 0.56 L Ur Collection Type Voided Urine Color Yellow Urine Clarity Turbid A Urine pH 5.5 Ur Specific [place] 1.018 Urine Protein 1+ A Urine Glucose (UA) Negative Urine Ketones Negative Urine Blood 3+ A Urine Nitrite Negative Urine Bilirubin Negative Urine Urobilinogen (Auto) 2.0 Ur Leukocyte Esterase Positive Urine RBC 11 H Urine WBC 99 H Ur Squamous Epith Cells 25 H Amorphous Crystals Present A Urine Bacteria 4+ A Hyaline Casts 10 H Granular Casts 1 RBC Casts < 1 Urine Opiates Screen Negative Urine Fentanyl Screen Negative Ur Barbiturates Screen Negative U Amphetamin/Meth Scrn Negative U Benzodiazepines Scrn Negative U Cocaine Metab Screen Negative U Marijuana (THC) Screen Negative Urine Alcohol Negative ABG Interpretation ABG results: 03/04/25 04:07 ABG pH 7.34 L ABG pCO2 36 ABG pO2 79 L ABG HCO3 20 ABG O2 Saturation 96 ABG Base Excess -6 L Quality Measures Quality Measures VTE prophylaxis Assessment & Plan Assessment Current Active Medications: Generic Name Dose Route Start Last Admin Trade Name Freq PRN Reason Stop Dose Admin Acetaminophen 650 mg 03/04/25 03:22 Acetaminophen 325 Mg Tablet PO 04/03/25 03:21 Q6H PRN Fever >100.4 or pain Albuterol/Ipratropium 3 ml 03/04/25 03:22 Albuterol/Ipratropium (Duoneb) Rt Eli 3 Ml Nebu INH 04/03/25 03:21 Q2HR PRN SHORTNESS OF BREATH OR WHEEZE Docusate Sodium 100 mg 03/04/25 03:22 Docusate Sod 100 Mg Capsule PO 04/03/25 03:21 QDAY PRN CONSTIPATION Protocol Heparin Sodium (Porcine) 5,000 unit 03/04/25 09:00 03/04/25 09:00 Heparin Sod Inj 5000 Unit/Ml Vial SC 03/18/25 08:59 Not Given Q12HR ADI Lactated Ringer's 1,000 mls @ 75 mls/hr 03/04/25 03:30 03/04/25 06:26 Lactated Ringers IV 03/04/25 16:49 75 mls/hr .[id number] ADI Administration Ceftriaxone Sodium/Dextrose 2 gm in 50 mls @ 100 mls/hr 03/05/25 09:00 Rocephin/D5w 2gm IV 03/11/25 08:59 QDAY ADI Azithromycin 500 mg/ Sodium 250 mls @ 250 mls/hr 03/04/25 21:00 Chloride IV 03/11/25 20:59 HS ADI Ondansetron HCl 4 mg 03/04/25 03:22 Ondansetron Inj 2 Mg/Ml Inj 2 Ml IVP 04/03/25 03:21 Q6H PRN NAUSEA OR VOMITING Protocol Prednisone 40 mg 03/04/25 09:00 03/04/25 09:55 Prednisone 20 Mg Tablet PO 03/11/25 03:36 40 mg QDAY ADI Administration Sennosides 1 tab 03/04/25 03:22 Senna Tablet PO 04/03/25 03:21 QDAY PRN constipation Protocol Plan Hetal Shah is a 59F with PMHx significant for hypothyroidism, probable COPD presented to [facility] ED on 03/04 from home with shortness of breath, hematemasis and general malaise, admitted for sepsis secondary community-acquired pneumonia with probable COPD exacerbation, found to have UTI and GIB. #Acute hypoxic respiratory failure likely 2/2 #CAP #COPD exacerbation Presented with shortness of breath generalized malaise. Patient requiring 6 L O2 to maintain O2 saturations at 90% and does not use O2 at home. Currently satting 96% on 3L O2. Patient does not report any known history of COPD, however has [id number] smoking history. On physical exam, b/l diffuse inspiratory and expiratory wheezing. CXR shows significant pneumonia at R base. CT head negative for hemorrhage or midline shift. Plan: - Azithromycin 500 mg and ceftriaxone 2g (03/04- - Duonebs q2h prn - Hold Prednisone 40 mg p.o. daily x 5 days (03/04) iso GIB - Supplemental O2 as needed to maintain saturations 88-92% - F/u sputum Cx and BCx #Sepsis 2/2 #UTI #KENNETH, likely prerenal #Hyponatremia #NAGMA, mild On admission 3/4 SIRS Tmax 102.2, BP decreased in 88/54, leukocytosis 12.2. UA turbid, +LE, 99WBC, 4+ bacteria. No UCx done as reflex not ordered. BUN 46, creatinine 2.6, EGFR 20, no known history of kidney disease and no recent baseline to compare; in 2021 Cr 1.0 with GFR>60. However likely prerenal due to dehydration 2/2 vomiting and diarrhea. Renal US shows mild bilateral renal parenchymal scar formation, 6 mm midpole right renal calculus, no hydronephrosis. s/p 3L NS in ED. UDS negative. Lactic acid 1.1. Procal 9.9. Troponins 0.053x2, 0.029. ABG 7.34/36/79/20, ABG indicates NAGMA with low bicarb likely 2/2 KENNETH with proper respiratory compensation using Winter's formula. Plan: - Strict I's and O's - Schneider cath - F/u hepatitis panel - Trend Cr - Avoid nephrotoxins, hepatotoxins #GIB (upper vs lower) #Hematemasis #Melena #Acute liver injury #Transaminitis Patient reports 1 episode of coffee-ground emesis x1 last night and black watery bowel movements for the past week. Never has had a colonoscopy or endoscopy. Used to drink alcohol heavily about 8 years ago however less and intermittently now. Last drink 3 weeks ago. No history of liver disease. AST 458, ALT 149, ALP normal, likely 2/2 sepsis. Liver ultrasound shows normal gallbladder, normal liver size, fatty infiltration no focal liver lesions. Hemoglobin 13.1 to 11 on admission. Plan: - Heparin held - Started IV pantoprazole 40 mg BID - GI consulted, recs apprecaited - Octreotide 50 mcg IVP x1 and start octreotide drip 50 mcg/hr - NPO after midnight #Hypothyroidism Patient has history of hypothyroidism, takes levothyroxine. Patient does not recall dosage. Patient later became hypothermic with a temperature of 96.6 and is needed zeinab hugger initially. However, per family, they are unsure whether she takes her levothyroxine everyday. TSH elevated 19.25 and T4 low 0.56. Plan: - Resume home levothyroxine 250 mcg QD - Follow-up with PCP for adjustment in levothyroxine dose Hospital management: Lines: peripheral IV, Schneider catheter Diet: Regular Bowel: Senna GI prophylaxis: IV pantoprazole 40 mg BID DVT prophylaxis: SCDs Disposition: tele for sepsis, GIB and management of acute hypoxic respiratory failure CODE STATUS: DNR Plan of care discussed with attending Dr. Coe, and PGY-2 Dr. Hanna. Marimar Lu, DO PGY-1 Internal Medicine
[2025-03-04] MEDS: OCTREOTIDE ACET INJ 50 mCg/ML VIAL IV (18:13)
[2025-03-04] MEDS: OCTREOTIDE ACET INJ 1,000 MCG in SODIUM CHLORIDE 0.9% 100 ML 5.1 MCG IV (18:14)
--- NOTE | 2025-03-04 18:21 | ESCONSULT_ITS ---
HPI Data of Consult Requesting Physician: Cam Manzano MD Primary Care Provider: Physician No Primary/Family Consult Narrative Reason for consult: Hematemesis, melena History of present illness: 5 years old female presented to the hospital with fever found to have a right lobe pneumonia CT scan of the head was negative as she was not able to get accurate history While in the hospital she had an episode of hematemesis and also melanotic stools Presenting hemoglobin hematocrit 13.1 and 36.5 which has gone down to 11.0 31.4 BUN/creatinine 41 and 2.5 Troponin 1 admission slightly elevated at 0.053 TSH 19.5 and she does have a history of hypothyroidism currently taking levothyroxine cc:: cc: Cam Manzano MD Review of Systems Review of Systems Systems Reviewed: All systems reviewed, normal except as documented Past Medical History Surgical History OTHER SURGICAL HX: As in the history of present illness Meds Home Medications and Allergies Home Medications ?Medication ?Instructions ?Recorded ?Confirmed ?Type Levothyroxine * (SYNTHROID *) 250 mcg PO ACBR #0 tabs 06/11/14 03/04/25 History escitalopram oxalate 10 mg tablet 10 mg PO QDAY #0 tab s 06/11/14 03/04/25 History (Lexapro) naproxen 500 mg tablet (Naprosyn) 500 mg PO BIDWM #0 t abs 06/11/14 03/04/25 History Allergies Allergy/AdvReac Type Severity Reaction Status Date / Time Penicillins Allergy Mild Hives Verified 03/03/25 23:16 Bee Stings Allergy Mild SWELL UP Uncoded 03/03/25 23:16 Exam Vital Signs Temp Pulse Resp BP Pulse Ox O2 Del Method O2 Flow Rate 96.6 F L 61 19 105/69 96 Nasal Cannula 3 03/04/25 16:00 03/04/25 16:00 03/04/25 16:00 03/04/25 16:00 03/04/25 16:00 03/04/25 16:00 03/04/25 13:54 Routine Respiratory Exam Comments: Scattered rhonchi and and decreased breath sounds at the bases Routine Abdominal Exam Comments: Soft nontender Results Labs 03/04/25 04:16 03/04/25 04:16 Labs: Short CBC 03/03/25 03/04/25 Range/Units 00:25 04:16 WBC 12.2 H 10.1 (3.6-11.0) Thou/mm3 Hgb 13.1 11.0 L D (12.0-16.0) g/dL Hct 36.8 31.4 L (36.0-46.0) % Plt Count 141 122 L (140-440) Thou/mm3 BMP 03/03/25 03/04/25 00:25 04:16 Sodium 130 L 132 L Potassium 4.0 4.2 Chloride 95 L 100 Carbon Dioxide 21.6 19.5 L BUN 46 H 41 H Creatinine 2.6 H 2.5 H Glucose 124 H 148 H Calcium 8.5 7.5 L Cardiac Enzymes 03/03/25 03/04/25 03/04/25 Range/Units 00: 02:56 11:30 Troponin I 0.053 H* 0.053 H* 0.029 (0.0-0.045) ng/mL Liver Function 03/03/25 03/04/25 Range/Units 00:25 04:16 Total Bilirubin 0.9 0.9 (0.3-1.2) mg/dL AST 458 H 362 H (0-34) U/L ALT 149 H 125 H (10-49) U/L Alkaline Phosphatase 99 84 (46-116) U/L Albumin 4.1 3.5 D (3.4-4.8) gm/dL Urine 03/04/25 Range/Units 04:10 Urine Color Yellow (Lt Yel-Yel) Urine Clarity Turbid A (Clear/Hazy) Urine pH 5.5 (5.0-7.0) Ur Specific [place] 1.018 (1.001-1.035) Urine Protein 1+ A (Neg - Trace) Urine Glucose (UA) Negative (Negative) ABG Interpretation ABG results: 03/04/25 04:07 ABG pH 7.34 L ABG pCO2 36 ABG pO2 79 L ABG HCO3 20 ABG O2 Saturation 96 ABG Base Excess -6 L Assessment and Plan Additional Assessment & Plan Additional Plan: # Melena # hematemesis # Posthemorrhagic anemia Plan N.p.o. midnight tonight except meds Consent obtained for fiberoptic esophagogastro duodenoscopy with possible therapeutic intervention under intravenous moderate sedation IV Protonix Patient does have a history of alcohol usage and will start on octreotide 50 mcg IV push loading dose and then 50 mcg/h Serial CBC Other medical problems include Fever secondary to most likely pneumonia Hypothyroidism Thank you very much for the opportunity to participate in the care of this patient
[2025-03-05] VITALS (21 sets, daily range): BP systolic 90–134; BP diastolic 55–79; PULSE 48–90; RESP 16–26; TEMP 36–36.6; O2SAT 88–99; BMI 32.9
[2025-03-05] MEDS: LEVOTHYROXINE SODIUM 125 MCG TABLET 250 MCG PO (05:10)
[2025-03-05 06:31] LABS: Basophils # (Auto) 0.0 Thou/mm3 (0.0-0.2); Basophils % (Auto) 0 % (0-2.5); Eosinophils # (Auto) 0.0 Thou/mm3 (0.0-0.5); Eosinophils % (Auto) 0 % (0-10); Hematocrit 35.1 % (36.0-46.0); Hemoglobin 12.2 g/dL (12.0-16.0); Immature Granulocytes Auto 0.19 Thou/mm3 (0.00-0.00); Lymphocytes # (Auto) 0.7 Thou/mm3 (1.0-4.8); Lymphocytes % (Auto) 5 % (10-50); Mean Corpuscular HGB Conc 34.8 g/dl (31.0-37.0); Mean Corpuscular Hemoglobin 30.7 pg (25.0-35.0); Mean Corpuscular Volume 88 fL (80-100); Monocytes # (Auto) 0.7 Thou/mm3 (0.0-0.8); Monocytes % (Auto) 6 % (0-12); Neutrophils # (Auto) 11.4 Thou/mm3 (1.8-7.7); Neutrophils % (Auto) 88 % (37-80); Nucleated Red Blood Cell # 0.02 Thou/mm3 (0.00-0.00); Nucleated Red Blood Cell % 0 /100 WBC (0); Platelet Count 156 Thou/mm3 (140-440); RDW Standard Deviation 50.9 fL (36.4-46.3); Red Blood Count 3.98 Miln/mm3 (4.00-5.20); White Blood Count 13.0 Thou/mm3 (3.6-11.0)
[2025-03-05 06:57] LABS: INR 1.1 (0.9-1.3); Partial Thromboplastin Time 25.1 Seconds (22.0-36.0); Prothrombin Time 11.5 Seconds (9.0-12.2)
[2025-03-05 07:14] LABS: Alanine Aminotransferase 122 U/L (10-49); Albumin, Serum 3.6 gm/dL (3.4-4.8); Albumin/Globulin Ratio 1.5 (1.2-2.2); Alkaline Phosphatase 96 U/L (46-116); Anion Gap 10 (7-16); Aspartate Amino Transferase 188 U/L (0-34); BUN/Creatinine Ratio 29 Ratio (12-20); Bilirubin,Total 0.3 mg/dL (0.3-1.2); Blood Urea Nitrogen 44 mg/dL (9-23); Calcium 8.2 mg/dL (8.3-10.6); Calcium (Corrected) 8.5 mg/dL (8.5-10.1); Carbon Dioxide 22.3 mMol/L (20.0-31.0); Chloride 101 mMol/L (98-107); Creatinine (Component) 1.5 mg/dL (0.6-1.3); Estimated Creatinine Clearance 47.3 mL/min (>60); Globulin 2.4 gm/dL (2.3-3.5); Glucose 252 mg/dL (74-106); Magnesium 2.8 mg/dL (1.6-2.6); Osmolality,Calculated 286 (275-295); Phosphorous 3.8 mg/dL (2.4-5.1); Potassium 4.2 mMol/L (3.4-5.1); Sodium 133 mMol/L (136-145); Total Protein 6.0 gm/dL (5.7-8.2); eGFR 40 See Note
[2025-03-05] MEDS: cefTRIAXone/D5w 2gm 2 GM/50 ML BAG IV (08:10)
--- NOTE | 2025-03-05 09:21 | PC.SS ---
Follow up note: EGD today. On IV antibiotic.
[2025-03-05] MEDS: ALBUTEROL/IPRATROPIUM (Duoneb) RT SOL 3 ML NEBU INH ×4 (10:37→23:14)
--- NOTE | 2025-03-05 13:35 | ESPR_ITS ---
<Statement entered by Jamel Coe MD - 03/08/25 09:12> I reviewed above note and agree with findings and plans. I have also personally examined the patient with medicine team and went over assessment and plan with medical team including internal controls consultant and resident physician. <Statement entered by Yin Hanna MD - 03/05/25 16:00> Patient is seen and examined at bedside this morning. Currently saturating on 2 L of oxygen via nasal cannula. Patient continues to have shortness of breath and diffuse wheezing on auscultation. However patient is very alert and oriented and is holding a conversation. Patient states she feels much better. Patient does recall that she ate an entire bag of cherries which could have been attributing to her vomiting and the color. However patient is scheduled for EGD hemoglobin have been stable therefore we will continue IV Solu-Medrol and scheduled DuoNebs. Will continue IV antibiotics and discontinue the Schneider as patient is now more alert and would like to use the toilet and be able to ambulate. KENNETH is improving. Will continue to monitor and anticipate discharge tomorrow. Patient was seen and examined by me personally. I have directly supervised and reviewed documentation by the team resident and agree with its findings. ------- Plan of care was discussed with the attending, Dr. Carolin Hanna, PGY-2 Documentation for date of: 03/05/25 Subjective Subjective Interval history: No acute overnight events. Patient seen and examined at bedside with family member. Patient endorses shortness of breath and prominent wheezing. Per family patient is less altered today and closer to her baseline. Patient endorses that every time she coughs she has a lower abdominal pain, likely muscular due to recent vomiting episodes. States that she also remembers that she ate black cherries the day prior to vomiting, however still endorses black watery diarrhea for the past week. Patient is scheduled for EGD today. Restarted steroids as low suspicion for GI bleed lower with hemoglobin stable and new reported oreilly consumption. Started IV methylprednisolone 40 mg and scheduled DuoNebs to be every 4 hours. Continue azithromycin and ceftriaxone. Discontinue Schneider. Started SSI. Labs overall improving, transaminitis and KENNETH resolving and patient is requiring less oxygen. Exam Vital Signs Temp Pulse Resp BP Pulse Ox O2 Del Method O2 Flow Rate 96.9 F 66 19 111/64 92 L Nasal Cannula 2 03/05/25 12:00 03/05/25 12:00 03/05/25 12:00 03/05/25 12:00 03/05/25 12:00 03/05/25 12:00 03/05/25 12:00 Narrative Exam GENERAL: AOx3, no acute distress, lying comfortably in bed HEENT: NC/AT, mucous membranes dry, bilateral sclera anicteric CARDIOVASCULAR: regular rate and rhythm, S1/S2 present, no murmurs appreciated PULMONARY: mildly diminished breath sounds b/l, ++diffuse b/l inspiratory and expiratory wheezing ABDOMINAL: soft, non-tender, non-distended, no rebound/guarding, bowel sounds present EXTREMITIES: no peripheral edema SKIN: warm and dry, intact, no rashes NEURO: CN II-XII grossly intact, following commands Objective Labs 03/05/25 06:05 03/05/25 06:05 Labs: Laboratory Results - last 24 hr 03/04/25 03/05/25 18:14 06:05 WBC 13.0 H RBC 3.98 L Hgb 12.2 Hct 35.1 L MCV 88 MCH 30.7 MCHC 34.8 RDW Std Deviation 50.9 H Plt Count 156 D Neut % (Auto) 88 H Lymph % (Auto) 5 L Tucker % (Auto) 6 Eos % (Auto) 0 Baso % (Auto) 0 Neut # (Auto) 11.4 H Lymph # (Auto) 0.7 L Tucker # (Auto) 0.7 Eos # (Auto) 0.0 Baso # (Auto) 0.0 Immature Gran # (Auto) 0.19 H Absolute Nucleated RBC 0.02 H Immature Gran % 2 H Nucleated RBC % 0 PT 11.5 INR 1.1 APTT 25.1 Sodium 133 L Potassium 4.2 Chloride 101 Carbon Dioxide 22.3 Anion Gap 10 BUN 44 H Creatinine 1.5 H D Estim Creat Clear Calc 47.3 L eGFR 40 L BUN/Creatinine Ratio 29 H Glucose 252 H D Calculated Osmolality 286 Calcium 8.2 L Corrected Calcium 8.5 Phosphorus 3.8 Magnesium 2.8 H Total Bilirubin 0.3 D AST 188 H ALT 122 H Alkaline Phosphatase 96 Total Protein 6.0 Albumin 3.6 Globulin 2.4 Albumin/Globulin Ratio 1.5 Blood Type O Positive Antibody Screen NEGATIVE Blood Bank Wristband ID Yes ABG Interpretation ABG results: 03/04/25 04:07 ABG pH 7.34 L ABG pCO2 36 ABG pO2 79 L ABG HCO3 20 ABG O2 Saturation 96 ABG Base Excess -6 L Quality Measures Quality Measures VTE prophylaxis Assessment & Plan Assessment Current Active Medications: Generic Name Dose Route Start Last Admin Trade Name Freq PRN Reason Stop Dose Admin Acetaminophen 650 mg 03/04/25 03:22 Acetaminophen 325 Mg Tablet PO 04/03/25 03:21 Q6H PRN Fever >100.4 or pain Albuterol/Ipratropium 3 ml 03/05/25 10:30 03/05/25 10:37 Albuterol/Ipratropium (Duoneb) Rt Eli 3 Ml Nebu INH 04/04/25 10:29 3 ml Q4HRRT ADI Administration Albuterol/Ipratropium 3 ml 03/05/25 10:21 Albuterol/Ipratropium (Duoneb) Rt Eli 3 Ml Nebu INH 04/04/25 10:20 Q2HR PRN SHORTNESS OF BREATH OR WHEEZE Dextrose 25 ml 03/05/25 08:27 Dextrose 50%-Water Inj 50 Ml Syringe IV 04/04/25 08:26 Q15MIN PRN BG 50-70 responsive npo pt Dextrose 50 ml 03/05/25 08:27 Dextrose 50%-Water Inj 50 Ml Syringe IV 04/04/25 08:26 Q15MIN PRN BG <50 OR BG <70 & pt unresponsive Docusate Sodium 100 mg 03/04/25 03:22 Docusate Sod 100 Mg Capsule PO 04/03/25 03:21 QDAY PRN CONSTIPATION Protocol Glucagon 1 mg 03/05/25 08:27 Glucagon Inj 1 Mg Vial IM Q15MIN PRN BG <70, and no IV access Heparin Sodium (Porcine) 5,000 unit 03/04/25 09:00 03/04/25 09:00 Heparin Sod Inj 5000 Unit/Ml Vial SC 03/18/25 08:59 Not Given Q12HR ADI Ceftriaxone Sodium/Dextrose 2 gm in 50 mls @ 100 mls/hr 03/05/25 09:00 03/05/25 08:10 Rocephin/D5w 2gm IV 03/11/25 08:59 100 mls/hr QDAY ADI Administration Azithromycin 500 mg/ Sodium 250 mls @ 250 mls/hr 03/04/25 21:00 03/04/25 21:30 Chloride IV 03/11/25 20:59 Infused HS ADI Infusion Octreotide Acetate 1,000 mcg/ 102 mls @ 5.1 mls/hr 03/04/25 17:45 03/04/25 18:14 Sodium Chloride IV 03/09/25 17:45 50 mcg/hr .Q20H ADI 5.1 mls/hr Administration Protocol 50 MCG/HR Insulin Human Lispro 0 unit 03/05/25 08:30 03/05/25 12:30 Insulin Lispro (Admelog) 1 Unit/0.01 Ml Unit SC 04/04/25 08:29 Not Given Q6HR ADI Protocol Levothyroxine Sodium 250 mcg 03/05/25 06:00 03/05/25 05:10 Levothyroxine Sodium 125 Mcg Tablet PO 04/04/25 05:59 250 mcg ACBR ADI Administration Methylprednisolone Sodium Succinate 40 mg 03/05/25 10:30 03/05/25 12:24 Methylprednisolone Sod Succ 40 Mg Vial IVP 03/12/25 10:29 40 mg QDAY ADI Administration Ondansetron HCl 4 mg 03/04/25 03:22 Ondansetron Inj 2 Mg/Ml Inj 2 Ml IVP 04/03/25 03:21 Q6H PRN NAUSEA OR VOMITING Protocol Pantoprazole Sodium 40 mg 03/04/25 17:30 03/05/25 08:10 Pantoprazole Inj 40 Mg Vial IVP 04/03/25 17:29 40 mg BID ADI Administration Sennosides 1 tab 03/04/25 03:22 Senna Tablet PO 04/03/25 03:21 QDAY PRN constipation Protocol Plan Hetal Shah is a 59F with PMHx significant for hypothyroidism, probable COPD presented to [facility] ED on 03/04 from home with shortness of breath, hematemasis and general malaise, admitted for sepsis secondary community-acquired pneumonia with probable COPD exacerbation, found to have UTI and possible GIB. #Acute hypoxic respiratory failure likely 2/2 #CAP #COPD exacerbation Presented with shortness of breath generalized malaise. Patient requiring 6 L O2 to maintain O2 saturations at 90% and does not use O2 at home. Currently satting 96% on 3L O2. Patient does not report any known history of COPD, however has [id number] smoking history. On physical exam, b/l diffuse inspiratory and expiratory wheezing. CXR shows significant pneumonia at R base. CT head negative for hemorrhage or midline shift. s/p PO prednisone 40 mg (03/04) BCx NGTD Plan: - Azithromycin 500 mg and ceftriaxone 2g (03/04- - Duonebs q4h scheduled - Start IV methylprednisolone 40 mg - Supplemental O2 as needed to maintain saturations 88-92% - F/u sputum Cx #Sepsis, resolved 2/2 #UTI #KENNETH, likely prerenal #Hyponatremia #NAGMA, mild On admission 3/4 SIRS Tmax 102.2, BP decreased in 88/54, leukocytosis 12.2. UA turbid, +LE, 99WBC, 4+ bacteria. No UCx done as reflex not ordered. BUN 46, creatinine 2.6, EGFR 20, no known history of kidney disease and no recent baseline to compare; in 2021 Cr 1.0 with GFR>60. However likely prerenal due to dehydration 2/2 vomiting and diarrhea. Renal US shows mild bilateral renal parenchymal scar formation, 6 mm midpole right renal calculus, no hydronephrosis. s/p 3L NS in ED. UDS negative. Lactic acid 1.1. Procal 9.9. Troponins 0.053x2, 0.029. ABG 7.34/36/79/20, ABG indicates NAGMA with low bicarb likely 2/2 KENNETH with proper respiratory compensation using Winter's formula. Plan: - Strict I&O's - Schneider cath - F/u hepatitis panel - Trend Cr - Avoid nephrotoxins, hepatotoxins #Suspicion for GIB (upper vs lower) #Melena #Acute liver injury #Transaminitis, improving Patient reports 1 episode of coffee-ground emesis x1 last night and black watery bowel movements for the past week. Initially thought to be upper GIB, however, patient today endorsed eating numerous black cherries prior to vomiting. Never has had a colonoscopy or endoscopy. Used to drink alcohol heavily about 8 years ago however less and intermittently now. Last drink 3 weeks ago. No history of liver disease. AST 458, ALT 149, ALP normal, likely 2/2 sepsis. Liver ultrasound shows normal gallbladder, normal liver size, fatty infiltration no focal liver lesions. Hemoglobin 13.1->11->12.2 Plan: - Heparin restarted due to lower suspicion of GIB - IV pantoprazole 40 mg BID and octreotide drip 50 mcg/hr - GI consulted, recs appreciated, planned for EGD today #Hypothyroidism Patient has history of hypothyroidism, takes levothyroxine. On admission after fever, became hypothermic with a temperature of 96.6 and needed zeinab hugger. However, per family, they are unsure whether she takes her levothyroxine everyday. TSH elevated 19.25 and T4 low 0.56. Plan: - Resume home levothyroxine 250 mcg QD - Follow-up with PCP for adjustment in levothyroxine dose Hospital management: Lines: peripheral IV Diet: Regular Bowel: Senna GI prophylaxis: IV pantoprazole 40 mg BID DVT prophylaxis: SCDs Disposition: tele for sepsis, GIB and management of acute hypoxic respiratory failure CODE STATUS: DNR Plan of care discussed with attending Dr. Coe, and PGY-2 Dr. Hanna. Marimar Lu, DO PGY-1 Internal Medicine
[2025-03-05 13:49] LABS: Hepatitis A Antibody IgM Non Reactive (Non React); Hepatitis B Core Antibody IgM Non Reactive (Non React); Hepatitis B Surface Antigen Non Reactive (Non React); Hepatitis C Antibody Non Reactive (Non React)
[2025-03-05] MEDS: OCTREOTIDE ACET INJ 1,000 MCG in SODIUM CHLORIDE 0.9% 100 ML 5.1 MCG IV (14:38)
[2025-03-05] MEDS: SODIUM CHLORIDE 0.9% 1000 ML 1,000 ML 75 ML IV (18:03)
[2025-03-05] MEDS: SODIUM CHLORIDE 0.9% 500 ML 500 ML 20 ML IV (20:55)
--- NOTE | 2025-03-05 21:21 | SUR.PHASEI ---
pt received from OR in recovery bay 5. pt asleep but responds to voice, breathing unlabored on nc 4l. v/s stable. report received from Silvia CHANEY.
--- NOTE | 2025-03-05 21:55 | SUR.PHASEI ---
pt asleep but responds to voice, breathing unlabored on 4l nc. v/s stable. report called to Ronald Barnett. pt will be transferred to room at this time.
[2025-03-05] MEDS: AZITHROMYCIN INJ 500 MG in SODIUM CHLORIDE 0.9% 250 ML 250 ML 250 MG IV (22:12)
[2025-03-05] MEDS: INSULIN LISPRO (AdmeLOG) 1 UNIT/0.01 ML UNIT SC (23:23)
[2025-03-06] VITALS (8 sets, daily range): BP systolic 105–127; BP diastolic 64–67; PULSE 66–88; RESP 12–24; TEMP 36.3–36.5; O2SAT 87–97; BMI 32.9
[2025-03-06] MEDS: ALBUTEROL/IPRATROPIUM (Duoneb) RT SOL 3 ML NEBU INH ×3 (02:30→10:55)
[2025-03-06] MEDS: LEVOTHYROXINE SODIUM 125 MCG TABLET 250 MCG PO (06:07)
[2025-03-06 06:41] LABS: Basophils # (Auto) 0.1 Thou/mm3 (0.0-0.2); Basophils % (Auto) 1 % (0-2.5); Eosinophils # (Auto) 0.0 Thou/mm3 (0.0-0.5); Eosinophils % (Auto) 0 % (0-10); Hematocrit 33.8 % (36.0-46.0); Hemoglobin 11.5 g/dL (12.0-16.0); Immature Granulocytes Auto 0.58 Thou/mm3 (0.00-0.00); Lymphocytes # (Auto) 0.9 Thou/mm3 (1.0-4.8); Lymphocytes % (Auto) 5 % (10-50); Mean Corpuscular HGB Conc 34.0 g/dl (31.0-37.0); Mean Corpuscular Hemoglobin 30.9 pg (25.0-35.0); Mean Corpuscular Volume 91 fL (80-100); Monocytes # (Auto) 1.1 Thou/mm3 (0.0-0.8); Monocytes % (Auto) 7 % (0-12); Neutrophils # (Auto) 14.0 Thou/mm3 (1.8-7.7); Neutrophils % (Auto) 84 % (37-80); Nucleated Red Blood Cell # 0.03 Thou/mm3 (0.00-0.00); Nucleated Red Blood Cell % 0 /100 WBC (0); Platelet Count 211 Thou/mm3 (140-440); RDW Standard Deviation 53.7 fL (36.4-46.3); Red Blood Count 3.72 Miln/mm3 (4.00-5.20); White Blood Count 16.6 Thou/mm3 (3.6-11.0)
[2025-03-06 06:59] LABS: Alanine Aminotransferase 109 U/L (10-49); Albumin, Serum 3.4 gm/dL (3.4-4.8); Albumin/Globulin Ratio 1.5 (1.2-2.2); Alkaline Phosphatase 93 U/L (46-116); Anion Gap 11 (7-16); Aspartate Amino Transferase 136 U/L (0-34); BUN/Creatinine Ratio 31 Ratio (12-20); Bilirubin,Total 0.3 mg/dL (0.3-1.2); Blood Urea Nitrogen 37 mg/dL (9-23); Calcium 8.3 mg/dL (8.3-10.6); Calcium (Corrected) 8.8 mg/dL (8.5-10.1); Carbon Dioxide 25.2 mMol/L (20.0-31.0); Chloride 104 mMol/L (98-107); Creatinine (Component) 1.2 mg/dL (0.6-1.3); Estimated Creatinine Clearance 59.1 mL/min (>60); Globulin 2.3 gm/dL (2.3-3.5); Glucose 229 mg/dL (74-106); Magnesium 2.8 mg/dL (1.6-2.6); Osmolality,Calculated 295 (275-295); Phosphorous 1.7 mg/dL (2.4-5.1); Potassium 4.0 mMol/L (3.4-5.1); Sodium 140 mMol/L (136-145); Total Protein 5.7 gm/dL (5.7-8.2); eGFR 52 See Note
[2025-03-06] MEDS: INSULIN LISPRO (AdmeLOG) 1 UNIT/0.01 ML UNIT SC ×2 (07:38→12:23)
--- NOTE | 2025-03-06 08:15 | PC.SS ---
Late note 03-06-25: SS met with patient regarding her d/c plan. Pt is alert/oriented. Pt was admitted for SOB, General Malaise. Pt confirmed demographic and contact information is correct on facesheet. Pt resides with alone. Pt ambulates independently without assistance or DME. Pt is ok with all ADLs. Pt is currently on 3 liters of O2. Pt does not utilize O2 at home. Patient?s pharmacy of choice is [facility]. Pt named her son, Venkatesh Titus medical decision maker if she is unable. Patient?s choice is to return home upon d/c. Pt states she is not diabetic and is not on dialysis. D/C plan: Return home Next of Kin: Venkatesh Titus, son, phone# [phone] or Janeen Frausto, sister, phone# [phone] PCP: [facility] Address: Correct on facesheet
[2025-03-06] MEDS: cefTRIAXone/D5w 1gm IV premix 1 GM/50 ML BAG IV (08:44)
[2025-03-06] MEDS: guaiFENesin SYRUP 200 MG/10 ML UDC 100 MG PO ×2 (10:23→13:40)
[2025-03-06] MEDS: AZITHROMYCIN 250 MG TABLET 500 MG PO (11:30)
--- NOTE | 2025-03-06 11:33 | PC.NURSE ---
Patient oxygen saturation dropped to 86% on room air and sustatined.
--- NOTE | 2025-03-06 11:38 | PC.NURSE ---
discharge pending home oxygen
--- NOTE | 2025-03-06 14:26 | PC.SS ---
has sent DME order for home O2 using [facility]. [facility] has accepted DME order and will deliver to bedside.
--- NOTE | 2025-03-06 15:07 | ESDS_ITS ---
<Statement entered by Jamel Coe MD - 03/19/25 07:42> I reviewed above note and agree with findings and plans. I have also personally examined the patient with medicine team and went over assessment and plan with medical team including consultant internship and resident physician. Planned Discharge Date 03/06/25 DS: Providers Provider Date of admission: 03/04/25 03:22 Primary care physician: Physician No Primary/Family Admitting Provider: Cam Manzano MD Attending Provider on Admission: Jamel Coe MD Consults: 03/04/25 14:08 Referral Smoking Cessation Counseling Routine Comment: Smoking Cessation Education Needed Health Equity Referral - Nutrition Routine Comment: Positive screening for nutrition needs. 03/04/25 17:29 Consult to Gastroenterology Routine Comment: hematemasis and melena Consulting Provider: Malcolm Giang 03/05/25 18:58 Referral Physical Therapy Routine Comment: Physician Instructions: Attending Provider on DC: Jamel Coe MD Discharging Provider: Jamel Coe MD DS: Diagnosis Problem List Completed Was Problem List Reviewed/Reconciled?: Yes Hospital Course Hospital Course Hospital course: Summary: Hetal Shah is a 59F with PMHx significant for hypothyroidism, probable COPD presented to [facility] ED on 03/04 from home with confusion, shortness of breath, vomiting and general malaise, admitted for acute hypoxic respiratory failure 2/2 community acquired pneumonia and with probable COPD exacerbation and sepsis 2/2 UTI with KENNETH and transaminitis. Patient presented to ED requiring supplemental oxygen and with fever and leukocytosis. Patient was found to have pneumonia and physical exam showed likely COPD with diffuse wheezing, although patient does not have a history of COPD but has a 54-[id number] smoking history. Patient was treated with antibiotics, steroids, breathing treatments and supplemental oxygen. Patient was eventually weaned off oxygen and saturating well on 2L of O2. Patient's UTI was also treated with antibiotics. Course complicated by any history of coffee-ground emesis the night prior to admission, suspicious for upper GI bleed, but later reported that she ate many black cherries the day prior. Gastroenterology consulted and EGD was done, showing only gastritis. On discharge KENNETH and transaminitis resolved, vitals are stable and patient is feeling ready to go home. Patient will be discharged with home oxygen, antibiotics, taper steroids and long-acting and short acting inhalers. Imaging: Chest x-ray shows significant pneumonia at right base Discharge Recommendations: - Please take all medications as prescribed - START Cefuroxime for 7 more days - START inhalers, one long acting, Anoro Ellipta, and one rescue, albuterol - START steroid taper dose, please complete as directed - START panroprazole to prevent ulcers - Continue all other home medications - If your symptoms worsen, please seek immediate medical attention and return to your nearest emergency room. - Please follow up with your PCP within one week of discharge. If you do not have a PCP, you may follow up at the [facility] at [address] [place] [address] [address] [address], with Dr. Marimar Lu on afternoons. Hospital Diagnoses: #Acute hypoxic respiratory failure likely 2/2 #CAP #COPD exacerbation #Sepsis, resolved 2/2 #UTI #KENNETH, likely prerenal, resolved #Hyponatremia, resolved #NAGMA, mild, resolved #Suspicion for GIB (upper vs lower), ruled out #Acute liver injury #Transaminitis, improving #Hypothyroidism Marimar Lu, DO Internal Medicine, PGY-1 Status at Discharge Cognitive/behavioral status at discharge: Stable Overall status at discharge: patient is progressing back to baseline Time Spent with Patient Time attestation: Total time spent providing and/or coordinating discharge services: Time spent: Greater than 30 minutes Exam Vital Signs Temp Pulse Resp BP Pulse Ox O2 Del Method O2 Flow Rate 97.4 F 78 18 109/67 92 L Nasal Cannula 2 03/06/25 12:00 03/06/25 12:00 03/06/25 10:57 03/06/25 12:00 03/06/25 12:00 03/06/25 12:00 03/06/25 12:00 Narrative Exam GENERAL: AOx3, no acute distress, lying comfortably in bed HEENT: NC/AT, mucous membranes moist, bilateral sclera anicteric CARDIOVASCULAR: regular rate and rhythm, S1/S2 present, no murmurs appreciated PULMONARY: ++congestion, trace b/l wheezing ABDOMINAL: soft, non-tender, non-distended, no rebound/guarding, bowel sounds present EXTREMITIES: no peripheral edema SKIN: warm and dry, intact, no rashes NEURO: CN II-XII grossly intact, following commands Discharge Plan Plan Patient Disposition: HOME (Self Care) Patient condition on transfer: Stable Care Plan Goals: -Follow up with PCP within 1 week of discharge, if you do not have a primary care physician you can come see us at the [facility] by calling [phone] -You have been prescribed antibiotics for 7 additional days, please complete the course -You have been alsp prescribe inhalers, use as directed -You have been prescribe steroids taper dose, please complete the taper as directed. Steroids can cause elevated blood sugars, please check you sugars and eat a low carb diet. Steroids can you cause some gastritis, you have been prescribe pantoprazole to prevent ulcers -Continue rest of medications as previously prescribed -Return to the ED or call EMS if symptoms return and/or worsen Prescriptions/Referrals Prescriptions/Med Rec: New guaifenesin 100 mg/5 mL Liquid 100 mg PO TID 7 Days Qty: 105 0RF pantoprazole 40 mg tablet,delayed release (DR/EC) 40 mg PO QDAY Qty: 30 0RF prednisolone 5 mg tablet 5 mg PO QDAY Qty: 38 0RF Taper: Prednisone Taper 20 mg DAILY for 5 Days and 0 Hour 10 mg DAILY for 5 Days and 0 Hour 5 mg DAILY for 5 Days and 0 Hour 2.5 mg DAILY for 6 Days and 0 Hour cefuroxime axetil 500 mg tablet 500 mg PO BID 7 Days Qty: 14 0RF umeclidinium-vilanterol [Anoro Ellipta] 62.5-25 mcg/actuation blister with device 1 inh inhalation QDAY Qty: 60 0RF albuterol sulfate 90 mcg/actuation HFA aerosol inhaler 1 inh inhalation QID PRN (Reason: shortness of breath or wheezing) Qty: 8.5 0RF Continued Levothyroxine * (SYNTHROID *) 125 MCG tablet 250 mcg PO ACBR Qty: 0 Discontinued naproxen [Naprosyn] 500 MG tablet 500 mg PO BIDWM Qty: 0 Patient Comments: PRN PAIN escitalopram oxalate [Lexapro] 10 MG tablet 10 mg PO QDAY Qty: 0 Referrals: No Primary/Family,Physician [Primary Care Provider] - Patient/Caregiver Discharge Instructions Discharge Activity: activity as tolerated Print Language: Lebanese Stand Alone Forms: Tr[employer] Award Info., Patient Portal Info Letter Discharge Order Discharge Orders: Discharge (Routine); Ordered 03/06/25 Ordered By: Yin Hanna Quality Discharge Quality Measures VTE prophylaxis
--- NOTE | 2025-03-06 22:41 | PD.IMPROG ---
Documentation for date of: 03/06/25 Subjective Subjective Interval history: Late entry for the note Case discussed with internal medicine team okay to discharge to be followed by the PCP Exam Vital Signs Temp Pulse Resp BP Pulse Ox O2 Del Method O2 Flow Rate 97.6 F 75 20 105/67 95 Nasal Cannula 3 03/06/25 13:50 03/06/25 13:50 03/06/25 13:50 03/06/25 13:50 03/06/25 13:50 03/06/25 13:50 03/06/25 13:50 Objective Labs 03/06/25 04:58 03/06/25 04:58 Labs: Laboratory Results - last 24 hr 03/06/25 04:58 WBC 16.6 H RBC 3.72 L Hgb 11.5 L Hct 33.8 L MCV 91 MCH 30.9 MCHC 34.0 RDW Std Deviation 53.7 H Plt Count 211 D Neut % (Auto) 84 H Lymph % (Auto) 5 L Stevens % (Auto) 7 Eos % (Auto) 0 Baso % (Auto) 1 Neut # (Auto) 14.0 H Lymph # (Auto) 0.9 L Stevens # (Auto) 1.1 H Eos # (Auto) 0.0 Baso # (Auto) 0.1 Immature Gran # (Auto) 0.58 H Absolute Nucleated RBC 0.03 H Immature Gran % 4 H Nucleated RBC % 0 Sodium 140 Potassium 4.0 Chloride 104 Carbon Dioxide 25.2 Anion Gap 11 BUN 37 H Creatinine 1.2 Estim Creat Clear Calc 59.1 L eGFR 52 L BUN/Creatinine Ratio 31 H Glucose 229 H Calculated Osmolality 295 Calcium 8.3 Corrected Calcium 8.8 Phosphorus 1.7 L Magnesium 2.8 H Total Bilirubin 0.3 AST 136 H ALT 109 H Alkaline Phosphatase 93 Total Protein 5.7 Albumin 3.4 Globulin 2.3 Albumin/Globulin Ratio 1.5 Impressions Impression: Gastritis Esophagitis Okay to discharge on a PPI to be followed by the PCP ABG Interpretation ABG results: 03/04/25 04:07 ABG pH 7.34 L ABG pCO2 36 ABG pO2 79 L ABG HCO3 20 ABG O2 Saturation 96 ABG Base Excess -6 L Assessment & Plan A&P Narrative # Melena # hematemesis # Posthemorrhagic anemia Plan N.p.o. midnight tonight except meds Consent obtained for fiberoptic esophagogastro duodenoscopy with possible therapeutic intervention under intravenous moderate sedation IV Protonix Patient does have a history of alcohol usage and will start on octreotide 50 mcg IV push loading dose and then 50 mcg/h Serial CBC Other medical problems include Fever secondary to most likely pneumonia Hypothyroidism Thank you very much for the opportunity to participate in the care of this patient Time Spent With Patient Time: Total time spent is greater than 50% in coordination of care (as documented) at patient's floor/unit and/or counseling patient:
== END 2025-03-06 15:32 | disposition home or self-care (01) | DRG 720 ==
LOC: SERX 03-04 02:54 → SERHOLD 03-04 03:41 → S2NX 03-04 13:28
PROVIDERS: Specialist; Admitting Provider Student in an Organized Health Care Education/Training Program; Visit Provider Internal Medicine
PROC: 0DJ08ZZ Inspection of Upper Intestinal Tract, Via Natural or Artificial Opening Endoscopic (ICD-10-PCS; CPT 43239; principal; 2025-03-05 20:15)
DX: A41.9 Sepsis, unspecified organism (principal); E03.9 Hypothyroidism, unspecified; J18.9 Pneumonia, unspecified organism; J44.0 Chronic obstructive pulmonary disease with (acute) lower respiratory infection; Z87.891 Personal history of nicotine dependence; J96.01 Acute respiratory failure with hypoxia; J44.1 Chronic obstructive pulmonary disease with (acute) exacerbation; N17.9 Acute kidney failure, unspecified; Z79.890 Hormone replacement therapy; Z66 Do not resuscitate; N39.0 Urinary tract infection, site not specified; E87.20 Acidosis, unspecified; E87.1 Hypo-osmolality and hyponatremia; E86.0 Dehydration; K20.91 Esophagitis, unspecified with bleeding; G93.40 Encephalopathy, unspecified; D50.0 Iron deficiency anemia secondary to blood loss (chronic); K29.71 Gastritis, unspecified, with bleeding; N20.0 Calculus of kidney; Z79.899 Other long term (current) drug therapy; Z88.0 Allergy status to penicillin
CPT/HCPCS: 36415; 36600; 70450; 71045; 76705; 76770; 80053; 80061; 80074; 80307; 80320; 81001; 82803; 83605; 83735; 84100; 84145; 84439; 84443; 84484; 85025; 85610; 85730; 86850; 86900; 86901; 87040; 87205; 87400; 87811; 93005; 94640; 94664; 94667; 96361; 96365; 96366; 96375; 97162; 99284; A4649; A9270; J0456; J0696; J1200; J1815; J2250; J2354; J2470; J2919; J3010; J3475; J7030; J7050; J7120; J7512; J7999; S0077; G0480; J0737

== ENCOUNTER → 2025-04-03 08:37 | Outpatient (AMB) | payer MEDICAID, SELFPAY | PROVIDERS: PCP Student in an Organized Health Care Education/Training Program; Referring Provider Student in an Organized Health Care Education/Training Program; Supervising Provider Student in an Organized Health Care Education/Training Program; Visit Provider Student in an Organized Health Care Education/Training Program | DX: Z53.9 Procedure and treatment not carried out, unspecified reason (principal) ==

== ENCOUNTER 2025-04-11 13:46 | Outpatient (AMB) | payer MEDICAID, SELFPAY ==
[2025-04-11 13:55] VITALS: BP 130/79; PULSE 93; RESP 18; TEMP 36.5; O2SAT 93; BMI 32.3
--- NOTE | 2025-04-11 13:55 | ACNOTE_ITS ---
<Statement entered by Jan Kebede MD - 04/18/25 14:32> Attending note: I, Jan Kebede MD, attest that I was physically present for the melendrez portions of the service and evaluated the patient with the resident and I reviewed and discussed the case with the resident and agree with the resident's findings and plans of care as documented above. Vital Signs 04/11/25 13:55 Height 1.68 m Height Method Stated Weight 90.889 kg Weight Measurement Method Standing Scale BMI 32.3 BP 130/79 Blood Pressure Source Automatic Cuff Blood Pressure Location Right Upper Arm Position Sitting Respiration 18 Pulse 93 Pulse Source Monitor Temp 97.7 F Temp Source Temporal Artery Scan Pulse Oximetry (%) 93 L Oxygen Delivery Method Room Air Allergies/Meds Allergies & Medications Allergies Penicillins Allergy (Mild, Verified 03/03/25 23:16) Hives Bee Stings Allergy (Mild, Uncoded 03/03/25 23:16) SWELL UP MA Intake Visit Data Collection New Patient or Established: Established Patient (seen at [facility] within 3 years) Seen by Clinical Staff ONLY (RN/MA): No Reason for Visit:: FOLLOW UP Pain Present Currently: Yes Pain Location: Chest (RIGHT SIDE) Pain scale:: 4 PCP or OBGYN visit in last 3 months: Yes Do You Feel Safe at Home: Yes Authorities Contacted: N/A Smoking Status Smoking Status: Current every day smoker Cessation Counseling Provided: JUAN CARLOS was advised that quitting smoking is the single most important factor to protect the health of themselves and their family. Discussed the benefits of quitting smoking with patient. Encouraged patient to quit smoking and provided Cessation assistance materials and resources. Tobacco Use: Cigarette Years smoked: 48 Are you interested in quitting?: Yes Would you like additional Smoking Cessation Counseling?: Yes Immunization / Flu Flu Vaccine in the Last 12 Months: No Flu Vaccine Exclusion Criteria: No Exclusion Criteria Past Medical History Past Medical History NEUROLOGIC: Negative Neurological Disorders or Seizures CARDIAC: Negative Congestive Heart Failure RESPIRATORY: Negative Chronic Obstructive Pulmonary Disease (COPD) GASTROINTESTINAL: Negative Gastrointestinal Disorders GENITOURINARY: Negative Genitourinary Disorders or Renal Disease REPRODUCTIVE: Negative Pelvic Inflammatory Disease ENDOCRINE: Positive Hypothyroidism; Negative Diabetes Mellitus Type 1 or Diabetes Mellitus Type 2 HEMATOLOGIC: Negative Blood Disorders PSYCHO/SOCIAL: Positive Depression and Anxiety OTHER HISTORY: Negative Autoimmune Disease, Blood Transfusions, Anesthesia Reactions or Cancer Family History FAMILY HISTORY: Negative Family Psychiatric Problems, Family Respiratory Disorders, Family Cardiac Disorders, Family Gastrointestinal Problems, Family Cancer, Family Surgery or Family Anesthesia Reaction Social History SMOKING STATUS: Smoking status: Current every day smoker SECOND HAND EXPOSURE: second hand exposure: Yes ALCOHOL: Alcohol Intake: Current ALCOHOL FREQUENCY: Alcohol Intake Frequency: holidays/special occasions only HOUSING: Housing: House LIVES WITH: Lives With: Alone Patient Portal Questionaires Social History Living Situation History Housing: House Housing Other:: Pt lives alone Tobacco History Smoking Status: Current every day smoker Second Hand Smoke Exposure: Yes Alcohol History Alcohol Intake: Current Alcohol Intake Frequency: holidays/special occasions only Domestic Abuse History Do You Feel Safe at Home: Yes Review of Systems Report any current symptoms Only answer those that you have currently: Past Medical History Past Medical History Have you ever been diagnosed with any of the following: Neurological Problems Seizures: No Cardiology Problems Congestive Heart Failure: No Respiratory Problems Chronic Obstructive Pulmonary Disease (COPD): No Genital/Urinary Problems Renal Disease: No Reproductive Problems Pelvic Inflammatory Disease: No Endocrine Problems Diabetes Mellitus Type 1: No Diabetes Mellitus Type 2: No Hypothyroidism: Yes Psychologic Problems Depression: Yes Anxiety: Yes Other Problems Autoimmune Disease: No Blood Transfusions: No Anesthesia Reactions: No Cancer: No History of Present Illness HPI Narrative Ms. Shah is a 59F with PMHx significant for hypothyroidism, COPD (current smoker) was hospitalized at [facility] ED on 03/04 to 03/06 for treatment of community acquired pneumonia and sepsis 2/2 UTI with KENNETH and transaminitis. 04/11: Pt is at [facility] for follow up appointment after hospitalization. Pt was discharged from hospital with antibiotics and tapered dose of steroids which she completed. Pt was also sent home with LOREN and LABA, which she is continuing to use. Pt was sent home with supplemental oxygen which she uses every evening for approximately 1 hour before going to bed. Pt denies any flu like symptoms, fever or chills. however pt states she continues to have a cough likely due to COPD. Pt continues to attempt to decrease her cigarets usage. Currently is smoking 6-7 cigs daily. Pt does not want to use nicotine patch or gum as it makes her feel sick. But will continue her taper efforts. Pt is also taking escitalopram 10mg for depression and is unsure of the dose of synthroid however will call in the morning with the correct dose stated on the bottle. Pt also taking over the counter B12 and Vitamin D. Pt pt is counseled on decreasing smoking to 5 cigs daily and will repeat thyroid panel next visit. Review of Systems Review of Systems Systems Reviewed: All systems reviewed, normal except as documented Objective/Exam Narrative Physical exam: GENERAL: A&Ox3 . Awake, Not in acute distress NEURO: no focal neurological deficits HEENT: Atraumatic, Normocephalic. mucous membranes moist. Eyes open, symmetrical, & clear HEART: Normal Heart Sounds LUNGS: Clear to auscultation with no wheezing or crackles. ABDOMEN: soft, non-distended, non-tender, bowel sounds heard, no guarding or rebound tenderness SKIN: No Rash or ecchymoses EXTREMITIES: No edema, tenderness, able to move all 4 extremities, pedal pulses palpated Assessment & Plan Diagnosis / Problem List (1) COPD (chronic obstructive pulmonary disease): Status: Acute Assessment & Plan: -Pt is a current smoker, have been smoking since the age of [age] years old. -Have been ddecreasing the amount of cigerrets daily -Using supplemental oxygen 2L nightly for 1 hour -Currently using inhalers -Does not want nicotine patch or um Plan: -Continue using both inhalers (LOREN and LABA) -Continue supplemental oxygen as needed -Continue tapering down cigarets use (2) Hypothyroidism (acquired): Status: Acute Assessment & Plan: -Currently taking 250mcg synthroid daily -On 03/04 TSH 19.25 and Free T4 0.56 Plan: -Continue synthroid dose -Will repeat thyroid panel in 6 weeks (3) Depression: Status: Acute Assessment & Plan: -Pt is currently taking escitalopram 10mg daily for the past 4 years Plan: -Continue escitalopram -Refilled the medication Office Procedures [facility] Level of Care Nursing/Assessment Patient Status: Established Patient Nursing Assessment/Reassessment: Medication Reconciliation, Update PMH in EMR and Vital Signs Coordination of Care: Complex Care and Chronic Disease 1-5, Consent,records obtained, informed consent, Lab and Imaging orders and Results/Orders obtained Established Patient Charge Established Patient Point Assignment: 80 Established Patient Point Charge: Level 3 (80-115)
== END 2025-04-11 15:01 | disposition home or self-care (01) ==
LOC: HODAHC 13:46
PROVIDERS: Supervising Provider Internal Medicine
DX: J44.9 Chronic obstructive pulmonary disease, unspecified (principal); Z99.81 Dependence on supplemental oxygen; F17.210 Nicotine dependence, cigarettes, uncomplicated; E03.9 Hypothyroidism, unspecified; F32.A Depression, unspecified
CPT/HCPCS: 99213; G0463